=== PATIENT | female | born 1955 | race Caucasian/White ===

== ENCOUNTER 2019-02-21 12:50 | Outpatient (CLI) | payer MEDICARE, SELFPAY ==
--- NOTE | 2019-02-21 13:02 | MM_ITS ---
WS: [id number] BILATERAL SCREENING DIGITAL MAMMOGRAM WITH CAD HISTORY: SCREENING COMPARISON: 06/15/2017 and 04/23/2016 Bilateral CC and MLO views submitted. Computer aided detection analyzed. Breast composition: The breasts are heterogeneously dense, which may obscure small masses. No suspici ous masses, microcalcifications or architectural distortion. Postoperative cavity in the central LEFT breast is identified and unchanged. MM/[id number] IMPRESSION: BI-RADS: 2-Benign FOLLOW UP: 1 Year Follow-up
== END 2019-02-21 12:51 | disposition home or self-care (01) ==
LOC: RADSHAW 12:56
PROVIDERS: Family Provider Internal Medicine; PCP Internal Medicine; Visit Provider Internal Medicine
DX: Z12.31 Encounter for screening mammogram for malignant neoplasm of breast (principal)
CPT/HCPCS: 77067

== ENCOUNTER 2019-03-28 10:53 | Day surgery (SDC) | payer MEDICARE, SELFPAY ==
[2019-03-25 13:47] VITALS: BMI 27.9
--- NOTE | 2019-03-28 11:03 | P.ANESASSM_ITS ---
Pre-Anesthetic Assessment Pre-Anesthetic Assessment: Height/Weight: Height 1.63 m Weight 73.936 kg Preop Diagnosis: hx colon polyps Proposed Procedure: Operation Date: 03/28/19 12:00 Proposed Procedures p Colonoscopy(Not Applicable) - Yordan Obrien MD Was Beta Mike taken within 24 hours: Yes Last intake: 07:00 Last Intake: 22:00 Social: Social History: Tobacco Packs per day: 1/2 Pack years: 23 Exam: Pre-Anes Outpt Exam: alert, oriented x 3, clear to auscultation bilaterally and regular rate & rhythm Airway: Submandibular: WNL Cervical ROM: WNL MP: 1 Pulmonary: Pulmonary: COPD CV/HEM: CV/HEM: Afib and Arrythmia Comments: 2 blocks/2FOS without angina/REDDING stress test '19 negative Metabolic: Metabolic: Thyroid (replacement x 12y without recent changes) Musc/skel: Musc/skel: Lower Back Pain Comments: right radiculopathy Anesthetic Plan: ASA status: 3 Anesthesia: MAC PFSH Anesthesia PFSH: Social History Smoking and tobacco status: current every day smoker Second hand smoke exposure: Yes Alcohol intake: never Adopted: No Caregiver/support person: Yes Lives independently: Yes Household members: spouse Housing: House Marital status: Highest education level completed: High School Graduate service: No Current occupational status: employed Current occupational exposures/hazards: No Pets and animals: Yes Pets & animals: cat(s) and dog(s) History of recent travel: No Sexually active: Yes Current gender identity: Female Patricia/Anglican: Presybeterian Special patricia needs: No Agree to transfusion: No Financial difficulty paying for basics: Decline to Answer Data Anesthesia Cardiac Studies: No Data to Display
[2019-03-28] MEDS: sodium chloride 0.9% 1,000 ML 30 ML (11:53)
[2019-03-28 11:54] VITALS: BP 117/62; PULSE 57; RESP 20; TEMP 36.6; O2SAT 95
--- NOTE | 2019-03-28 11:56 | PM.HPUD ---
H&P update H&P Update: DATE OF SURGERY/PROCEDURE: 03/28/19 DATE H&P PERFORMED: 03/16/19 H&P UPDATE INFORMATION: H&P completed within last 30 days and No changes to prior documentation PREOP DIAGNOSIS: Colon polyps PLANNED PROCEDURE: Operation Date: 03/28/19 12:00 Proposed Procedures p Colonoscopy(Not Applicable) - Yordan Obrien MD Full H&P Perinent History: Medical/Surgical History: Medical History (Updated 03/17/19 @ 09:25 by Yordan Obrien MD) Anxiety (Acute) Atrial fibrillation (Acute) Graves disease (Acute) Hypothyroid (Acute) Left breast lump (Acute) Lumbar disc disorder with myelopathy (Acute) Myalgia (Acute) Osteoporosis (Acute) Thoracic compression fracture (Acute) Tobacco abuse (Acute) Family History: Family History (Updated 03/17/19 @ 09:21 by Yordan Obrien MD) Other History of colon polyps Denies family history of Anesthesia complication Bleeding disorder Social History: Social History Smoking and tobacco status: current every day smoker Second hand smoke exposure: Yes Alcohol intake: never Adopted: No Caregiver/support person: Yes Lives independently: Yes Household members: spouse Housing: House Marital status: Highest education level completed: High School Graduate service: No Current occupational status: employed Current occupational exposures/hazards: No Pets and animals: Yes Pets & animals: cat(s) and dog(s) History of recent travel: No Sexually active: Yes Current gender identity: Female Patricia/Mosque: Mandaen Special patricia needs: No Agree to transfusion: No Financial difficulty paying for basics: Decline to Answer
[2019-03-28 12:16] VITALS: BP 99/62; PULSE 57; RESP 20; TEMP 36.7; O2SAT 93
[2019-03-28 12:31] VITALS: BP 93/70; PULSE 62; RESP 18; TEMP 36.9; O2SAT 96
--- NOTE | 2019-03-28 13:23 | ANE.PACU2 ---
 Inpatient post-anesthesia follow up: Airway intact: Yes Vital signs: Temperature 98.4 F Pulse Rate 62 Respiratory Rate 18 Blood Pressure 93/70 Pulse Oximetry 96 Oxygen Delivery Me thod Room Air Oxygen Flow Rate 3 Fraction of Inspir ed Oxygen Hydration adequate: Yes Nausea and vomiting: No Mental status: Baseline
== END 2019-03-28 12:52 | disposition home or self-care (01) ==
PROVIDERS: Family Provider Internal Medicine; PCP Internal Medicine; Visit Provider Surgery
PROC: 0DJD8ZZ Inspection of Lower Intestinal Tract, Via Natural or Artificial Opening Endoscopic (ICD-10-PCS; CPT 45378; principal; 2019-03-28 12:00)
DX: Z12.11 Encounter for screening for malignant neoplasm of colon (principal); R22.2 Localized swelling, mass and lump, trunk; Z86.010 Personal history of colon polyps; I48.91 Unspecified atrial fibrillation; E03.9 Hypothyroidism, unspecified; M79.10 Myalgia, unspecified site; M81.0 Age-related osteoporosis without current pathological fracture; F17.210 Nicotine dependence, cigarettes, uncomplicated; J44.9 Chronic obstructive pulmonary disease, unspecified
CPT/HCPCS: 12345; 45378; J2704; J7030

== ENCOUNTER 2019-04-12 12:52 | Outpatient (CLI) | payer MEDICARE, SELFPAY ==
[2019-04-12] MEDS: iohexol 300 mg/mL 50 mL Btl PO (13:26)
[2019-04-12 14:11] LABS: Blood Urea Nitrogen 15 mg/dL (8-23); Glomerular Filtration Rate 56.2 mL/min (90-130)
[2019-04-12] MEDS: iohexol 300 mg/mL 100 mL Btl IV (14:24)
--- NOTE | 2019-04-12 14:30 | CT_ITS ---
WS: [id number] CT ABDOMEN AND PELVIS WITH CONTRAST HISTORY: subcutaneous nodule of abdominal wall TECHNIQUE: Imaging performed of the abdomen and pelvis with IV contrast. Single phase imaging of the abdomen. Coronal and sagittal reformats are submitted. All CT scans at [facility] use at least one of these dose optimization techniques: automated exposure control; mA and/or kV adjustment per patient size (includes targeted exams where dose is matched to clinical indication); or iterativ e reconstruction. IV CONTRAST: Omnipaque 300; 95 mL IV. Oral contrast: Yes. DLP: 1125.66 mGycm COMPARISON: 2017 and 07/16/2018 Lower thorax: Lung bases are clear. Heart is normal size. Small hiatal hernia. Liver/biliary system: Liver is normal size. There are a few scattered cysts. There is an additional e nhancing mass in the medial LEFT lobe the liver consistent with a hemangioma which has been previousl y described. Hemangioma measures 2.8 x 2.3 cm. No bile duct dilatation. Gallbladder: Cholecystectomy. Pancreas: Normal. Spleen: Normal. Adrenal glands: Stable adrenal adenomas. Right kidney: Cortical cysts and hypodensities throughout the kidney with scarring in the posterior m id kidney. No solid mass. Left kidney: Cortical cysts and hypodensities. Some of these are too small to characterize. No solid mass. Aorta: Mild atherosclerosis aorta. Lymphadenopathy: None. Free fluid: None. GI tract: Prior appendectomy. No GI tract obstruction. No diverticular disease. Abdominal wall: Intact. No soft tissue mass identified. Pelvis: Prior hysterectomy. No free fluid or adenopathy. Urinary bladder is not distended. Bones: L5-S1 degenerative disc disease. CT/CT abdomen pelvis w con* [id number] IMPRESSION: 1. Prior cholecystectomy, appendectomy and hysterectomy. 2. No soft tissue masses. 3. Hepatic and renal cysts and hepatic hemangioma. 4. Stable bilateral adrenal adenomas.
== END 2019-04-12 12:53 | disposition home or self-care (01) ==
LOC: RADWPI 12:55
PROVIDERS: Family Provider Internal Medicine; PCP Internal Medicine; Visit Provider Surgery
DX: K76.89 Other specified diseases of liver (principal); N28.1 Cyst of kidney, acquired; D35.02 Benign neoplasm of left adrenal gland; D35.01 Benign neoplasm of right adrenal gland; R22.2 Localized swelling, mass and lump, trunk; Z90.49 Acquired absence of other specified parts of digestive tract; Z90.710 Acquired absence of both cervix and uterus
CPT/HCPCS: 74177; 82565; 84520; Q9967

== ENCOUNTER → 2019-11-17 14:51 | Outpatient (BNVA) | payer MEDICARE, SELFPAY | PROVIDERS: Family Provider Internal Medicine; PCP Internal Medicine; Visit Provider Family Medicine Adult Medicine | DX: N18.30 Chronic kidney disease, stage 3 unspecified (principal); I48.0 Paroxysmal atrial fibrillation; E05.00 Thyrotoxicosis with diffuse goiter without thyrotoxic crisis or storm; R10.9 Unspecified abdominal pain; G89.29 Other chronic pain | CPT/HCPCS: 80053; 80061; 84439; 84443; 85025 ==

== ENCOUNTER 2019-12-01 08:33 | Emergency (ER) | payer MEDICARE, SELFPAY ==
--- NOTE | 2019-12-01 08:37 | XR_ITS ---
WS: [id number] Portable AP upright chest, 12/01/2019 Clinical Data: rapid HR Comparison: Portable chest, 12/17/2018. Findings: No nodules, masses or effusions are seen. The heart is normal. The pulmonary vascularity is not increased. No pneumonia or pneumothorax is seen. Hyperinflation is present. Monitor leads are on the upper chest wall. XR/XR chest 1V portable [id number] Impression: Hyperinflation.
[2019-12-01 08:38] VITALS: BP 130/91; PULSE 131; RESP 18; TEMP 36.2; O2SAT 98; BMI 27.4
[2019-12-01 08:41] VITALS: BP 130/91; PULSE 54; RESP 21; O2SAT 98
--- NOTE | 2019-12-01 08:50 | ED_ITS ---
HPI - Arrhythmia/Palpitations General: Chief Complaint: Arrhythmia/Palpitations Stated Complaint: Rapid Heart Rate Time Seen by Provider: 12/01/19 08:36 History of Present Illness: HPI narrative: 61-year-old female presents with complaint of palpitations and rapid heart rate that began overnight. She has a known history of atrial fibrillation she did not take either atenolol or flecainide this morning. She was recently changed from levothyroxine to [place] Thyroid. She is not had any fever sweats chills nausea vomiting diarrhea she does have some chest discomfort. No recent flulike symptoms. She does have a little chest tightness which she relates to the rapid heart rate at this point. No radiation of any chest discomfort. She has no orthopnea. MD complaint: rapid heart beat, heart racing , palpitations, irregular heart beat and atrial fibrillation Onset (ago): hour(s) Duration: constant Severity: severe Context: occurred during rest Arrhythmia history: atrial fibrillation Associated symptoms: Deny anxiety, cough, diaphoresis, muscle cramps, nausea, paresthesias, pre-syncope, sense of impending doom, short of breath, syncope or vomiting Review of Systems Const: Denies: diaphoresis ENMT: Denies: throat pain, ear or mastoid pain, nasal discharge or nasal conge stion Card: Denies: syncope or pre-syncope Resp: Denies: dyspnea, productive cough or non-productive cough GI: Denies: nausea or vomiting : Denies: flank pain, difficulty voiding, dysuria, urinary frequency or urinary urgency Musc: Denies: muscle cramps Skin/Breast: Denies: rash or pruritus Psych: Denies: anxiety PFSH ED PFSH: Medical History Anxiety Atrial fibrillation Bradycardia Chronic abdominal pain Chronic kidney disease, stage 2 (mild) Graves disease Left breast lump Lumbar disc disorder with myelopathy Myalgia Osteoporosis Thoracic compression fracture Tobacco abuse Surgical History H/O: hysterectomy History of colon polyps Colonoscopy was done today and showed normal findings and patient will require screening colonoscopy in 10 years. History of left knee surgery History of thyroidectomy Hx of cholecystectomy Family History Other History of colon polyps Denies family history of Anesthesia complication Bleeding disorder Social History Smoking and tobacco status: current every day smoker Second hand smoke exposure: Yes Alcohol intake: never Adopted: No Caregiver/support person: Yes Lives independently: Yes Household members: spouse Housing: House Marital status: Highest education level completed: High School Graduate service: No Current occupational status: employed Current occupational exposures/hazards: No Pets and animals: Yes Pets & animals: cat(s) and dog(s) History of recent travel: No Sexually active: Yes Current gender identity: Female Patricia/Quaker: Mormonism Special patricia needs: No Agree to transfusion: No Financial difficulty paying for basics: Decline to Answer Physical Exam Const: COMMON NORMALS: no acute distress GENERAL APPEARANCE: cooperative and comfortable ORIENTATION/CONSCIOUSNESS: Yes awake, Yes oriented to person, Yes oriented to place and Yes oriented to time HENMT: COMMON NORMALS: normocephalic, atraumatic and hearing grossly normal bilaterally HEAD & SCALP: normocephalic and atraumatic Eye: COMMON NORMALS: Equal, round and reactive pupils present, EOMs intact bilaterally, conjunctivae normal and no scleral icterus CONJUNCTIVA: Yes conjunctivae normal PUPIL: Yes Equal, round and reactive pupils present Resp: COMMON NORMALS: normal respiratory effort, No retractions, No use of accessory muscles and clear to auscultation bilaterally AUSCULTATION: clear to auscultation bilaterally Cardio: RATE: tachycardic RHYTHM: abnormal rhythm irregularly irregular GI: COMMON NORMALS: Soft to palpation and No hepatosplenomegaly present AUSCULTATION: Yes normoactive bowel sounds PALPATION: Yes Soft to palpation, No Tenderness to palpation present (GI), No Guarding due to palpation present (GI) and Yes No hepatosplenomegaly present Extremity: COMMON NORMALS: normal to inspection, capillary refill normal, no clubbing, cyanosis or edema, no calf tenderness and no pedal edema Neuro: SENSORIUM/ORIENTATION: Yes oriented to person, Yes oriented to place and Yes oriented to time Skin: COMMON NORMALS: no rashes or lesions noted GENERAL SKIN EXAM: no rashes or lesions noted Course Vital Signs: Vital signs: Vital Signs Temperature 97.1 F L 12/01/19 08:38 Pulse Rate 54 L 12/01/19 12:50 Respiratory Rate 18 12/01/19 12:50 Blood Pressure 141/79 12/01/19 12:50 Pulse Oximetry 99 12/01/19 12:50 MDM - Arrhythmia/Palpitations MDM Narrative: Medical decision making narrative: Patient converted with oral medications. She is feeling much better 2 troponins negative discharge home continue current medications follow-up with her primary care doctor she also follow-up for adjustment on the [place] Thyroid Lab Data: Labs: Lab Results 12/01/19 12/01/19 12/01/19 Range/Units 08:47 08:47 08:47 WBC 7.5 (4.0-10.0) 10^3/ uL RBC 4.95 (4.1-5.3) 10^6/u L Hgb 16.1 H (11.5-15.3) g/dL Hct 49.2 H (37.0-47.0) % MCV 99.4 H (81-99) fL MCH 32.5 (28.0-34.0) pg MCHC 32.7 (30.0-36.0) g/dL RDW 12.3 (12.1-15.1) % Plt Count 197 (130-400) 10^3/c mm MPV 10.9 H (7.4-10.4) fL Neut % (Auto) 49.1 % Lymph % (Auto) 41.7 % [place] % (Auto) 8.1 % Eos % (Auto) 0.7 % Baso % (Auto) 0.3 % Neut # (Auto) 3.69 (1.8-7.7) 10^3/u L Lymph # (Auto) 3.1 (0.8-4.8) 10^3/u L [place] # (Auto) 0.6 (0.2-0.9) 10^3/u L Eos # (Auto) 0.1 (0.0-0.8) 10^3/u L Baso # (Auto) 0.0 (0.0-0.1) 10^3/u L Nucleated RBC % (a uto) 0 % Nucleated RBCs # 0.0 /100WBC PT 12.80 (12.1-14.9) SECO NDS INR 0.94 (0.8-1.2) Sodium 144 (136-145) mmol/L Potassium 4.2 (3.5-5.1) mmol/L Chloride 111 H (98-107) mmol/L Carbon Dioxide 20 L (22-29) mmol/L Anion Gap 17.2 (5-19) BUN 10 (8-23) mg/dL Creatinine 0.9 (0.5-0.9) mg/dL GFR Calculation 63.4 L (90-130) mL/min Glucose 145 H (65-115) mg/dL Calculated Osmolal ity 300 H (285-295) mOsm/k g Calcium 9.4 (8.5-10.5) mg/dL Total Bilirubin 0.3 (0.15-1.2) mg/dL AST 16 (0-32) U/L ALT 14 (0-33) U/L Alkaline Phosphata se 117 H (35-105) IU/L Troponin T Baselin e (0-10) ng/L Troponin T 120 Min [place] (0-10) ng/L Delta Troponin T (0-10) ABS# Total Protein 6.3 L (6.6-8.7) g/dL Albumin 4.4 (3.5-5.2) g/dL Globulin 1.9 (1.3-4.6) g/dL TSH 0.19 L (0.27-4.20) uIU/ mL Free T4 1.16 (0.82-1.77) ng/d L Free T3 3.2 (2.0-4.4) PG/ML Urine Color (Yellow) Urine Appearance (CLEAR) Urine pH (5-7) Ur Specific Gravit y (1.005-1.030) Urine Protein (Negative) Urine Glucose (UA) (Normal) Urine Ketones (Negative) Urine Blood (Negative) Urine Nitrate (Negative) Urine Bilirubin (Negative) Urine Urobilinogen (Negative) mg/dL Ur Leukocyte Vickie ase (Negative) 12/01/19 12/01/19 12/01/19 Range/Units 08:47 09:39 11:08 WBC (4.0-10.0) 10^3/ uL RBC (4.1-5.3) 10^6/u L Hgb (11.5-15.3) g/dL Hct (37.0-47.0) % MCV (81-99) fL MCH (28.0-34.0) pg MCHC (30.0-36.0) g/dL RDW (12.1-15.1) % Plt Count (130-400) 10^3/c mm MPV (7.4-10.4) fL Neut % (Auto) % Lymph % (Auto) % [place] % (Auto) % Eos % (Auto) % Baso % (Auto) % Neut # (Auto) (1.8-7.7) 10^3/u L Lymph # (Auto) (0.8-4.8) 10^3/u L [place] # (Auto) (0.2-0.9) 10^3/u L Eos # (Auto) (0.0-0.8) 10^3/u L Baso # (Auto) (0.0-0.1) 10^3/u L Nucleated RBC % (a uto) % Nucleated RBCs # /100WBC PT (12.1-14.9) SECO NDS INR (0.8-1.2) Sodium (136-145) mmol/L Potassium (3.5-5.1) mmol/L Chloride (98-107) mmol/L Carbon Dioxide (22-29) mmol/L Anion Gap (5-19) BUN (8-23) mg/dL Creatinine (0.5-0.9) mg/dL GFR Calculation (90-130) mL/min Glucose (65-115) mg/dL Calculated Osmolal ity (285-295) mOsm/k g Calcium (8.5-10.5) mg/dL Total Bilirubin (0.15-1.2) mg/dL AST (0-32) U/L ALT (0-33) U/L Alkaline Phosphata se (35-105) IU/L Troponin T Baselin e 8 (0-10) ng/L Troponin T 120 Min [place] 20.27 H (0-10) ng/L Delta Troponin T 12.27 H* (0-10) ABS# Total Protein (6.6-8.7) g/dL Albumin (3.5-5.2) g/dL Globulin (1.3-4.6) g/dL TSH (0.27-4.20) uIU/ mL Free T4 (0.82-1.77) ng/d L Free T3 (2.0-4.4) PG/ML Urine Color Yellow (Yellow) Urine Appearance Clear (CLEAR) Urine pH 6 (5-7) Ur Specific Gravit y 1.015 (1.005-1.030) Urine Protein Neg (Negative) Urine Glucose (UA) Norm (Normal) Urine Ketones Negative (Negative) Urine Blood Neg (Negative) Urine Nitrate Negative (Negative) Urine Bilirubin Neg (Negative) Urine Urobilinogen Neg (Negative) mg/dL Ur Leukocyte Vickie ase Negative (Negative) Discharge Plan Discharge Patient Disposition: Home Clinical Impression: Atrial fibrillation, Graves disease Condition: Stable Prescriptions: No Action flecainide 50 mg tablet 50 mg PO Q12H Qty: 60 RF: 5 atenolol 25 mg tablet 25 mg PO DAILY 90 Days Qty: 90 RF: 3 ibuprofen 800 mg tablet 800 mg PO TID PRN (Reason: Pain) Qty: 90 RF: 1 bupropion HCl [Wellbutrin XL] 150 mg tablet extended release 24 hr 150 mg PO QAM Qty: 30 RF: 3 Xarelto 20 mg tablet 20 mg PO DAILY Qty: 90 RF: 1 thyroid (pork) [[place] Thyroid] 120 mg tablet 120 mg PO DAILY Qty: 90 RF: 1 thyroid (pork) [[place] Thyroid] 30 mg tablet 30 mg PO DAILY Qty: 90 RF: 1 Discharge Orders: Discharge Order (Routine); Ordered 12/01/19 Ordered By: Ming Baca Referrals: Ayde Li, [Primary Care Provider] - Discharge Diet: Usual diet Discharge Activity: Resume usual activity Activity Restrictions/Additional Instructions: Aloe up with your fire equipment inspector as soon as you are able. 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
--- NOTE | 2019-12-01 08:56 | ECG_ITS ---
[facility] Test Date: 2019-12-01 Pat Name: Megan Desai Department: Room: Gender: Female Hall Monitor: : 1955 Requested By: Ming Null Order Number: [id number] Sharif MD: Butch García M.D. Measurements Intervals [place] Rate: 159 P: SC: -1 QRS: 55 QRSD: 93 T: 29 QT: 279 QTc: 454 Interpretive Statements ATRIAL FIBRILLATION WITH RAPID VENTRICULAR RESPONSE ST DEPRESSION, CONSIDER SUBENDOCARDIAL INJURY [0.1+ mV ST DEPRESSION] Compared to ECG 12/17/2018 22:09:52 ST (T wave) deviation now present T-wave abnormality no longer present Electronically Signed On 12-01-2019 18:40:05 CDT by Butch García M.D. [id number] f
[2019-12-01] MEDS: atenolol 50 mg Tablet 25 MG PO (09:06)
[2019-12-01] MEDS: flecainide 100 mg Tablet 50 MG PO (09:06)
[2019-12-01 09:11] LABS: Basophils % 0.3 %; Eosinophils # 0.1 10^3/uL (0.0-0.8); Eosinophils % 0.7 %; Hematocrit 49.2 % (37.0-47.0); Hemoglobin 16.1 g/dL (11.5-15.3); Lymphocytes # 3.1 10^3/uL (0.8-4.8); Lymphocytes % 41.7 %; Mean Corpuscular HGB Conc 32.7 g/dL (30.0-36.0); Mean Corpuscular Hemoglobin 32.5 pg (28.0-34.0); Mean Corpuscular Volume 99.4 fL (81-99); Mean Platelet Volume 10.9 fL (7.4-10.4); Monocytes # 0.6 10^3/uL (0.2-0.9); Monocytes % 8.1 %; Neutrophils # 3.69 10^3/uL (1.8-7.7); Neutrophils % 49.1 %; Nucleated Red Blood Cells % 0 %; Platelet Count 197 10^3/cmm (130-400); Red Blood Count 4.95 10^6/uL (4.1-5.3); Red Cell Distribution Width 12.3 % (12.1-15.1); White Blood Count 7.5 10^3/uL (4.0-10.0)
[2019-12-01 09:30] VITALS: BP 125/80; PULSE 53; RESP 18; O2SAT 97
[2019-12-01 09:32] LABS: INR 0.94 (0.8-1.2)
[2019-12-01 09:37] LABS: Troponin(5th) Baseline 8 ng/L (0-10)
[2019-12-01 09:51] LABS: Add Urine Microscopic? NO
[2019-12-01 09:55] LABS: Bilirubin Urine Neg (Negative); Blood Urine Neg (Negative); Glucose Urine UA Norm (Normal); Ketones Urine Negative (Negative); Leukocyte Esterase Urine Negative (Negative); Nitrate Urine Negative (Negative); Protein Urine Neg (Negative); Specific Gravity, Urine 1.015 (1.005-1.030); Urine Appearance Clear (CLEAR); Urine Color Yellow (Yellow); Urobilinogen Urine Neg (Negative); pH Urine 6 (5-7)
[2019-12-01 09:56] LABS: Alanine Aminotransferase 14 U/L (0-33); Albumin Level 4.4 g/dL (3.5-5.2); Alkaline Phosphatase 117 IU/L (35-105); Aspartate Amino Transferase 16 U/L (0-32); Blood Urea Nitrogen 10 mg/dL (8-23); Calcium 9.4 mg/dL (8.5-10.5); Carbon Dioxide 20 mmol/L (22-29); Chloride 111 mmol/L (98-107); Free T4 Free Thyroxine 1.16 ng/dL (0.82-1.77); Globulin 1.9 g/dL (1.3-4.6); Glomerular Filtration Rate 63.4 mL/min (90-130); Glucose 145 mg/dL (65-115); Osmolality Calculated 300 mOsm/kg (285-295); Sodium 144 mmol/L (136-145); T3 Free 3.2 PG/ML (2.0-4.4); Thyroid Stimulating Hormone 0.19 uIU/mL (0.27-4.20); Total Bilirubin 0.3 mg/dL (0.15-1.2); Total Protein 6.3 g/dL (6.6-8.7)
[2019-12-01 09:58] LABS: Anion Gap 17.2 (5-19); Potassium 4.2 mmol/L (3.5-5.1)
[2019-12-01 10:00] VITALS: BP 134/86; PULSE 60; RESP 18; O2SAT 97
--- NOTE | 2019-12-01 10:56 | ECG_ITS ---
[facility] Test Date: 2019-12-01 Pat Name: Megan Desai Department: Room: Gender: Female Belt Sewer: : 1955 Requested By: Ming Null Order Number: [id number] Sharif MD: Butch García M.D. Measurements Intervals [place] Rate: 54 P: 30 AL: 152 QRS: 27 QRSD: 102 T: 34 QT: 413 QTc: 392 Interpretive Statements SINUS BRADYCARDIA Compared to ECG 12/01/2019 08:41:30 Atrial fibrillation no longer present ST (T wave) deviation no longer present Electronically Signed On 12-01-2019 20:49:16 CDT by Butch García M.D. [email or web address]/[id number] f
[2019-12-01 11:00] VITALS: BP 136/84; PULSE 58; RESP 20; O2SAT 97
[2019-12-01 11:34] LABS: Troponin 5 2HR 20.27 ng/L (0-10)
[2019-12-01 11:39] LABS: Troponin 5 2HR Delta 12.27 ABS# (0-10)
[2019-12-01 12:50] VITALS: BP 141/79; PULSE 54; RESP 18; O2SAT 99
== END 2019-12-01 12:50 | disposition home or self-care (01) ==
PROVIDERS: Nurse Practitioner Family; Emergency Provider Family Medicine; Family Provider Internal Medicine; PCP Internal Medicine
DX: I48.91 Unspecified atrial fibrillation (principal); E05.00 Thyrotoxicosis with diffuse goiter without thyrotoxic crisis or storm; N18.2 Chronic kidney disease, stage 2 (mild); F17.210 Nicotine dependence, cigarettes, uncomplicated
CPT/HCPCS: 12345; 71045; 80053; 81003; 84439; 84443; 84481; 84484; 85025; 85610; 93005; 96374; 99283; 99284

== ENCOUNTER → 2020-05-21 10:55 | Outpatient (BNVA) | payer MEDICARE, SELFPAY | PROVIDERS: Family Provider Internal Medicine; PCP Family Medicine Adult Medicine; Visit Provider Family Medicine Adult Medicine | DX: E07.9 Disorder of thyroid, unspecified (principal); N18.2 Chronic kidney disease, stage 2 (mild); E05.00 Thyrotoxicosis with diffuse goiter without thyrotoxic crisis or storm; I48.20 Chronic atrial fibrillation, unspecified | CPT/HCPCS: 80048; 82040; 84443 ==

== ENCOUNTER 2020-12-18 10:46 | Outpatient (CLI) | payer MEDICARE, SELFPAY ==
--- NOTE | 2020-12-18 10:49 | MM_ITS ---
WS: [id number] BILATERAL DIGITAL SCREENING MAMMOGRAPHY WITH CAD CLINICAL INFORMATION: SCREENING HISTORY: Screening mammogram. No current complaints. COMPARISON: February 21, 2019 TECHNIQUE: Bilateral CC and MLO views. FINDINGS: The breasts are composed of heterogeneous fibroglandular density tissue, which can limit the detectio n of small underlying mass lesions. Benign dystrophic calcifications left breast at the lumpectomy ca vity. Lumpectomy central left breast with parenchymal fibrosis. No suspicious mass, asymmetry, calcif ications, or architectural distortion. No evidence of malignancy. MM/[id number] IMPRESSION: BI-RADS: 2-Benign FOLLOW UP: 1 Year Follow-up Recommend return to annual screening mammography.
== END 2020-12-18 10:47 | disposition home or self-care (01) ==
LOC: RADSHAW 10:47
PROVIDERS: PCP Family Medicine Adult Medicine; Visit Provider Family Medicine Adult Medicine
DX: Z12.31 Encounter for screening mammogram for malignant neoplasm of breast (principal)
CPT/HCPCS: 77067

== ENCOUNTER 2021-02-13 08:11 | Outpatient (CLI) | payer MEDICARE, SELFPAY ==
[2021-02-13 08:24] VITALS: BMI 27.6
--- NOTE | 2021-02-13 08:24 | ECG_ITS ---
[facility] Test Date: 2021-02-13 Pat Name: Megan Desai Department: Room: Gender: Female Vp Business Development: Gladis Card : 1955 Requested By: Candice Dugan Order Number: [id number] Reading MD: Candice Dugan M.D. Interpretive Statements NAME OF STUDY: LEXISCAN SESTAMIBI STRESS TEST INDICATION: Cp/afib, PROCEDURE: At the baseline, the EKG revealed normal sinus rhythm with a poor R wave progression. Nonspecific T wave changes. The baseline blood pressure was 152/74 mm Hg with a heart rate of 78 beats/min. Lexiscan was infused over a period of 20 seconds. A total of 0.4 milligrams of Lexiscan was infused. The stress phase was continued for a total of 5 minutes. Heart rate at the end of the stress phase was 84 with a blood pressure 157/72. The EKG at the peak infusion revealed no significant changes. Sestamibi was injected 20 seconds after the Lexiscan infusion. Blood pressure at the end of the recovery phase was 146/67 with a heart rate of 83 per minute. CONCLUSION: 1. No significant EKG changes with the LexiScan infusion 2. No LexiScan induced chest pain or cardiac arrhythmia 3. Normal blood pressure and heart rate response 4. Sestamibi/sestamibi perfusion scan pending; see separate report. Electronically Signed On 02-15-2021 10:52:09 PATENTED HOGSHEAD ASSEMBLER by Candice Dugan M.D. [id number]
--- NOTE | 2021-02-13 08:24 | NMCV_ITS ---
NM [place] perf SPECT r/s* [id number] Megan Desai Age: 65 Gender: F : 1955 Exam Date: 02/13/2021 08:24 Ordering Phys: Candice Dugan MD ([email or web address]) Technologist: MANJIT Leavitt Exam Location: [facility] Indications: SHORTNESS OF BREATH STRESS TEST Please [facility] IMAGE PROTOCOL Rest/Stress 1 Lexiscan Day Radiopharmaceutical Dose (mCi) Administration Site Administered by Rest: Tc-99m 10.9 IV MANJIT Leavitt Sestamibi Stress:Tc-99m 32.3 IV MANJIT Csatillo Sestamibi Rest: 13-Feb-2021 60 Discovery 630 Stress: 13-Feb-2021 30 Discovery 630 0.4mg Lexiscan. Images obtained in supine and prone position. SPECT RESULTS Technical Quality: Excellent Raw Data Analysis: Normal Image Corrections: No attenuation or motion correction applied Summed Stress Score: 0 Summed Rest Score: 0 Summed Difference Score: 0 PERFUSION FINDINGS Fairly uniform myocardial tracer uptake with no significant perfusion abnormalities FUNCTIONAL RESULTS (calculated via Gated SPECT) Stress Image LV EF (%): 82 Stress EDV (mL):61 TID: 0.94 Stress ESV (mL):11 FUNCTIONAL FINDINGS: Segmental wall motion analysis revealing no gross wall motion normalities IMPRESSIONS 1. Unremarkable myocardial perfusion imaging 2. Normal LV ejection fraction of 82%. 3. LV wall motion analysis revealing no gross wall motion normalities. 4. Normal LV volume No significant coronary ischemia, based on the above findings Dr Candice Dugan MD FAC (Electronically Signed) Final Date: 13 February 2021 17:22 S
[2021-02-13 10:18] VITALS: BP 152/74; PULSE 83
[2021-02-13] MEDS: regadenoson 0.4 Mg/5 ml Syringe IVP (10:19)
== END 2021-02-13 08:12 | disposition home or self-care (01) ==
LOC: CDL 08:12
PROVIDERS: PCP Family Medicine Adult Medicine; Visit Provider Internal Medicine Cardiovascular Disease
DX: R07.9 Chest pain, unspecified (principal); I48.91 Unspecified atrial fibrillation; R06.02 Shortness of breath
CPT/HCPCS: 78452; 93017; A9500; J2785

== ENCOUNTER → 2021-05-28 09:30 | Outpatient (BNVA) | payer MEDICARE, SELFPAY | PROVIDERS: PCP Family Medicine Adult Medicine; Visit Provider Family Medicine Adult Medicine | DX: R07.89 Other chest pain (principal); N18.2 Chronic kidney disease, stage 2 (mild); R22.2 Localized swelling, mass and lump, trunk; E05.00 Thyrotoxicosis with diffuse goiter without thyrotoxic crisis or storm; I48.20 Chronic atrial fibrillation, unspecified | CPT/HCPCS: 80053; 80061; 83036; 84443; 85025 ==

== ENCOUNTER → 2021-06-17 11:07 | Outpatient (BNVA) | payer MEDICARE, SELFPAY | PROVIDERS: PCP Family Medicine Adult Medicine; Visit Provider Internal Medicine Cardiovascular Disease | DX: R07.89 Other chest pain (principal); N18.2 Chronic kidney disease, stage 2 (mild); I48.20 Chronic atrial fibrillation, unspecified; Z79.01 Long term (current) use of anticoagulants; E05.00 Thyrotoxicosis with diffuse goiter without thyrotoxic crisis or storm; F17.210 Nicotine dependence, cigarettes, uncomplicated; Z79.899 Other long term (current) drug therapy | CPT/HCPCS: 93005; 99214 ==

== ENCOUNTER → 2021-12-18 14:32 | Outpatient (BNVA) | payer MEDICARE, SELFPAY | PROVIDERS: PCP Family Medicine Adult Medicine; Visit Provider Podiatrist Foot & Ankle Surgery | DX: M77.41 Metatarsalgia, right foot (principal); Q66.71 Congenital pes cavus, right foot; Q66.72 Congenital pes cavus, left foot; M77.42 Metatarsalgia, left foot; M77.52 Other enthesopathy of left foot and ankle; M77.51 Other enthesopathy of right foot and ankle; M72.2 Plantar fascial fibromatosis | CPT/HCPCS: 73630; 99204 ==

== ENCOUNTER 2022-01-08 12:54 | Outpatient (CLI) | payer MEDICARE, SELFPAY ==
--- NOTE | 2022-01-08 13:00 | XR_ITS ---
WS: [id number] DEXA (DUAL ENERGY X-RAY ABSORPTIOMETRY) Bone mineral density was performed using a Heyday machine. HISTORY: female PMS COMPARISON: 09/11/2014 Lumbar spine BMD (L1-L4): 0.820 g/cm2 T score: -3.0 Z score: -1.7 Total hip BMD: Left: 0.719 g/cm2. T score: -2.3 Z score: -1.3 Right: 0.779 g/cm2. T score: -1.8 Z score: -0.9 10 year probability of a major osteoporotic fracture is 19.7%. Compared to the prior study from 09/11/2014. Lumbar spine bone mineral density has decreased by 3.2%. Bilateral hips bone mineral density has decreased by 2.5%. XR/XR DEXA axial skeleton* [id number] IMPRESSION: OSTEOPOROSIS based upon the WHO classification for females. Significant decrease in bone mineral density within both the lumbar spine and h ips since the prior study.
== END 2022-01-08 12:55 | disposition home or self-care (01) ==
LOC: RAD 12:54
PROVIDERS: PCP Family Medicine Adult Medicine; Visit Provider Family Medicine Adult Medicine
DX: M81.0 Age-related osteoporosis without current pathological fracture (principal)
CPT/HCPCS: 77080

== ENCOUNTER → 2022-02-26 08:03 | Outpatient (BNVA) | payer MEDICARE, SELFPAY | PROVIDERS: PCP Family Medicine Adult Medicine; Visit Provider Podiatrist Foot & Ankle Surgery | DX: M77.41 Metatarsalgia, right foot (principal); Q66.71 Congenital pes cavus, right foot; Q66.72 Congenital pes cavus, left foot; M77.42 Metatarsalgia, left foot; M77.52 Other enthesopathy of left foot and ankle; M77.51 Other enthesopathy of right foot and ankle; M72.2 Plantar fascial fibromatosis | CPT/HCPCS: 99213 ==

== ENCOUNTER → 2022-02-26 10:01 | Outpatient (BNVA) | payer MEDICARE, SELFPAY | PROVIDERS: PCP Family Medicine Adult Medicine; Visit Provider Family Medicine Adult Medicine | DX: I48.20 Chronic atrial fibrillation, unspecified (principal); E05.00 Thyrotoxicosis with diffuse goiter without thyrotoxic crisis or storm | CPT/HCPCS: 84443 ==

== ENCOUNTER → 2022-05-12 08:36 | Outpatient (BNVA) | payer MEDICARE, SELFPAY | PROVIDERS: PCP Family Medicine Adult Medicine; Referring Provider Dermatology; Visit Provider Student in an Organized Health Care Education/Training Program | DX: M20.031 Swan-neck deformity of right finger(s) (principal) | CPT/HCPCS: 73130; 99203 ==

== ENCOUNTER 2022-06-02 10:00 | Outpatient (CLI) | payer MEDICARE, SELFPAY ==
--- NOTE | 2022-06-02 10:14 | MM_ITS ---
WS: [id number] Bilateral screening 3D tomosynthesis digital mammogram, 06/02/2022 Clinical Data: SCREENING Comparison: 12/18/2020, 02/21/2019, 06/15/2017, 04/23/2016, 01/03/2016, 09/27/2013, 07/25/2011, 06/19/2010, 2009. Findings: There is a spiculated area in the central portion of the left breast at the 12:00 position which cont ains amorphous calcifications. No secondary signs of carcinoma are seen. The breast parenchymal pattern shows heterogeneous density. The right breast shows no spiculated mass es or clustered calcifications. There are no secondary signs of carcinoma. There are lymph nodes in b oth axilla. MM/[place] [id number] Impression: 1. Recommend compression views in the ML and CC projection of the central port ion of the left breast in the region of the coarse calcifications. 2. Recommend left breast ultrasound. BIRADS: 0-Incomplete: Need additional imaging evaluation FOLLOW UP: See Report The CAD quality control checker was used.
== END 2022-06-02 10:01 | disposition home or self-care (01) ==
LOC: RAD 10:03
PROVIDERS: PCP Family Medicine Adult Medicine; Visit Provider Family Medicine Adult Medicine
DX: Z12.31 Encounter for screening mammogram for malignant neoplasm of breast (principal)
CPT/HCPCS: 77063; 77067

== ENCOUNTER 2022-06-23 09:15 | Outpatient (CLI) | payer MEDICARE, SELFPAY ==
--- NOTE | 2022-06-23 09:25 | MM_ITS ---
WS: [id number] DIAGNOSTIC LEFT DIGITAL TOMOSYNTHESIS MAMMOGRAPHY WITH CAD. HISTORY: R92.0 - Mammographic microcalcification found on mammogram. COMPARISON: 06/02/2022, 12/18/2020 and 02/21/2019 Technique: Spot compression LEFT CC and MLO. True ML. Breast composition: There are scattered areas of fibroglandular density. Focal area of spiculation i n the central breast near 12:00 corresponds to a prior surgical biopsy site. There is evidence for fa t necrosis and dystrophic calcifications. There is no significant mass. Suspect all the changes are r elated to the prior biopsy with fat necrosis and developing dystrophic calcifications. Ultrasound will not be performed today. Ultrasound evaluation of an area of fat necrosis is typically not recommended. This would only cause more confusion as there would be a large amount shadowing to the fat and calcification. Short-term follow-up should be obtained by mammography. MM/[place] [id number] IMPRESSION: BI-RADS: 3-Probably Benign FOLLOW UP: 6 Month Follow-up 1. Masslike area of slight spiculation in the LEFT breast at 12:00 is most lik italo fat necrosis with developing dystrophic calcifications from the prior biops y site. Ultrasound would not provide additional information or benefit at this time. 2. 6 month diagnostic LEFT mammogram would be the most helpful follow-up study .
== END 2022-06-23 09:16 | disposition home or self-care (01) ==
LOC: RAD 09:20
PROVIDERS: PCP Family Medicine Adult Medicine; Visit Provider Family Medicine Adult Medicine
DX: R92.0 Mammographic microcalcification found on diagnostic imaging of breast (principal); N63.21 Unspecified lump in the left breast, upper outer quadrant
CPT/HCPCS: 77061; 85651; 86140; 86431; G0279

== ENCOUNTER → 2022-07-18 07:20 | Outpatient (BNVA) | payer MEDICARE, SELFPAY | PROVIDERS: PCP Family Medicine Adult Medicine; Visit Provider Family Medicine Adult Medicine | DX: E05.00 Thyrotoxicosis with diffuse goiter without thyrotoxic crisis or storm (principal); Z79.899 Other long term (current) drug therapy; R11.10 Vomiting, unspecified; I12.9 Hypertensive chronic kidney disease with stage 1 through stage 4 chronic kidney disease, or unspecified chronic kidney disease; N18.2 Chronic kidney disease, stage 2 (mild); I48.91 Unspecified atrial fibrillation | CPT/HCPCS: 80053; 83036; 84439; 84443; 85025 ==

== ENCOUNTER → 2022-08-01 11:11 | Outpatient (BNVA) | payer MEDICARE, SELFPAY | PROVIDERS: PCP Family Medicine Adult Medicine; Visit Provider Specialist | DX: I48.20 Chronic atrial fibrillation, unspecified (principal); Z72.0 Tobacco use; Z79.01 Long term (current) use of anticoagulants; I12.9 Hypertensive chronic kidney disease with stage 1 through stage 4 chronic kidney disease, or unspecified chronic kidney disease; N18.9 Chronic kidney disease, unspecified; R00.1 Bradycardia, unspecified | CPT/HCPCS: 93005; 99214 ==

== ENCOUNTER 2022-08-26 07:41 | Outpatient (CLI) | payer MEDICARE, SELFPAY ==
--- NOTE | 2022-08-26 08:00 | USCV_ITS ---
Megan Desai Age: 66 Gender: F : 1955 Exam Date: 08/26/2022 07:49 Ordering Phys: Gilberto Caro MD ([email or web address]) Technologist: Long Malik Exam Location: [facility] [place] Indication: BP: 130 / 78 HR: 53 Rhythm: Sinus Technical Quality: Adequate MEASUREMENTS (Male / Female) Normal Values 2D ECHO LV Diastolic Diameter PLAX 5.1 cm 4.2 - 5.9 / 3.9 - 5.3 cm LV Systolic Diameter PLAX 3.0 cm IVS Diastolic Thickness 0.9 cm 0.6 - 1.0 / 0.6 - 0.9 cm IVS Systolic Thickness 1.5 cm LVPW Diastolic Thickness 1.0 cm 0.6 - 1.0 / 0.6 - 0.9 cm LVPW Systolic Thickness 1.8 cm LVOT Diameter 2.0 cm LV Ejection Fraction 2D Teich 70.5 % LV Ejection Fraction MOD 2C 61.5 % LV Ejection Fraction 2C AL 62.9 % LA Diameter 3.4 cm Aorta at Sinotubular Diameter 2.8 cm IVC Diameter 1.2 cm M-MODE Aortic Annulus Diameter 3.1 cm LA Ao Ratio MM 1.2 MV E Point Septal Separation 0.5 cm DOPPLER AV Peak Velocity 121.0 cm/s LVOT Peak Velocity 90.0 cm/s AV Area Cont Eq vti 2.6 cm squared AV Area Cont Eq pk 2.4 cm squared MV Peak Velocity 77.0 cm/s MV Area PHT 3.5 cm squared Mitral E to A Ratio 1.2 MV E' Velocity 38.5 cm/s Mitral E to MV E' Ratio 5.7 Mitral E to LV E' Lateral Ratio 4.6 Mitral E to LV E' Septal Ratio 7.5 TR Peak Velocity 137.0 cm/s TR Peak Gradient 7.5 mmHg TV Peak E Velocity 88.0 cm/s Right Atrial Pressure 3.0 mmHg Pulmonary Artery Systolic Pressu 10.5 mmHg FINDINGS Left Ventricle Normal left ventricular size and systolic function, EF 60 %. No regional wall motion abnormalities. Right Ventricle The right ventricle is normal in size and function. Right Atrium The right atrium is normal in size. Left Atrium The left atrium is normal in size. Mitral Valve Thickened mitral valve. Aortic Valve No gross abnormalities noted Tricuspid Valve Trace tricuspid valve regurgitation. Pulmonic Valve No gross abnormalities noted Pericardium Normal pericardium without effusion. Aorta Normal ascending aorta dimension. IVC Normal inferior vena cava. CONCLUSIONS Normal left ventricular size and systolic function, EF 60 %. No regional wall motion abnormalities. Thickened mitral valve. Trace tricuspid valve regurgitation. There is no pericardial effusion. There are no intracardiac masses. Compared to the previous study from 06/04/2015, there may not be a significant change Dr Candice Dugan MD FACC (Electronically Signed) Final Date: 29 August 2022 13:18 S
== END 2022-08-26 07:42 | disposition home or self-care (01) ==
PROVIDERS: PCP Family Medicine Adult Medicine; Visit Provider Specialist
DX: I10 Essential (primary) hypertension (principal); I48.91 Unspecified atrial fibrillation
CPT/HCPCS: 93306

== ENCOUNTER → 2022-09-26 09:02 | Outpatient (BNVA) | payer MEDICARE, SELFPAY | PROVIDERS: PCP Family Medicine Adult Medicine; Visit Provider Surgery | DX: R11.0 Nausea (principal); K31.84 Gastroparesis | CPT/HCPCS: 99204; 99214 ==

== ENCOUNTER 2022-10-09 08:28 | Day surgery (SDC) | payer MEDICARE, SELFPAY ==
[2022-10-09] MEDS: sodium chloride 0.9% 1,000 ML 30 ML IV (08:44)
[2022-10-09 08:46] VITALS: BP 141/64; PULSE 53; RESP 18; TEMP 36.5; O2SAT 98
--- NOTE | 2022-10-09 09:23 | P.ANESASSM_ITS ---
Pre-Anesthetic Assessment Height/Weight: Height 1.63 m Weight 70.76 kg Temp Pulse Resp BP Pulse Ox O2 Del Method 97.7 F 53 L 18 141/64 98 Room Air 10/09/22 08:46 10/09/22 08:46 10/09/22 08:46 10/09/22 08:46 10/09/22 08:46 10/09/22 08:46 Operation Date: 10/09/22 09:30 Proposed Procedures p EGD 29810,R11.0,K31.84(Not Applicable) - Hay Ramsey MD Familial anesthetic complications: none Was Beta Mike taken within 24 hours: N/A Was Clonidine taken within 24 hours: N/A Last intake: Intake Last Liquid Date 10/08/22 Last Liquid Time 23:00 Last Solid Date 10/08/22 Last Solid Time 21:00 Social Tobacco (1ppd) and No alcohol Exam alert and oriented x 3 Airway Submandibular: within normal limits Cervical ROM: within normal limits Mallampati: Class II Dentition: full History/ROS No significant history except as noted Pulmonary Chronic Obstructive Pulmonary Disease CV/HEM Atrial Fibrillation and Hypertension None reported Hepatic None reported GI None reported Metabolic Thyroid Disease [facility] None reported Neuropsych None reported Anesthetic Plan ASA status: 3 Anesthesia: Anesthesia Evaluation, General and MAC Medications/Allergies Home Medications Medication Instructions Recorded Confirmed Last Taken Type ibuprofen 800 mg tablet See Rx Instructions .Route 12/17/21 10/09/22 Unknown Rx .COMPLEX #90 tabs amlodipine 2.5 mg tablet 2.5 mg PO DAILY #90 tabs 02/24/22 10/07/22 10/08/22 Rx atenolol 25 mg tablet 25 mg PO DAILY #90 tabs 02/24/22 10/07/22 10/08/22 Rx alendronate 70 mg tablet 70 mg PO .q week #12 tabs 02/26/22 10/07/22 10/08/22 Rx flecainide 50 mg tablet 50 mg PO Q12H heat rhythm #180 tabs 06/03/22 10/07/22 10/08/22 Rx levocetirizine 5 mg tablet 5 mg PO DAILY allergies #90 tabs 06/03/22 10/07/22 10/08/22 Rx rivaroxaban 20 mg tablet (Xarelto) 20 mg PO DAILY blood thinner 90 06/03/22 10/07/22 10/06/22 Rx days #90 tabs thyroid (pork) 120 mg tablet 120 mg PO DAILY Hypothyroid 90 06/03/22 10/07/22 10/08/22 Rx ([place] Thyroid) days #90 tabs metoclopramide HCl 10 mg tablet 10 mg PO .q ac and q hs 09/02/22 10/07/22 10/08/22 Rx gastroporesis #120 tabs anhlmrvo-gzckqscwm-ijlomloa 3.5 1 drp ophthalmic (eye) Q8H #5 mL 09/27/22 10/07/22 10/08/22 Rx mg/mL-10,000 unit/mL-0.1% eye drops (Maxitrol) Allergies Allergy/AdvReac Type Severity Reaction Status Date / Time codeine Allergy Severe shortness Verified 10/09/22 08:38 of breath Current Medications Generic Name Dose Route Start Last Admin Trade Name Freq PRN Reason Stop Dose Admin Sodium Chloride 1,000 mls @ 30 mls/hr 10/09/22 08:30 10/09/22 08:44 Sodium Chloride 0.9% IV 10/10/22 08:29 30 mls/hr .Q24H STEVE Administration PFSH Anesthesia Medical History Abnormal mammogram with microcalcification Allergic rhinitis Anxiety Atrial fibrillation Capsulitis of metatarsophalangeal (MTP) joint of left foot Capsulitis of metatarsophalangeal (MTP) joint of right foot Chronic kidney disease, stage 2 (mild) Chronic nausea Gastroparesis Graves disease Surgical hypothyroidism Hypertension Lumbar disc disorder with myelopathy Osteoporosis thoracic compression fracture Plantar fasciitis, bilateral [place]-neck deformity of finger Thoracic compression fracture Surgical History H/O: hysterectomy History of colon polyps Colonoscopy was done today and showed normal findings and patient will require screening colonoscopy in 10 years. History of left knee surgery History of thyroidectomy Hx of cholecystectomy Hx of eye surgery Family History Other History of colon polyps Denies family history of Diabetes CAD (coronary artery disease) Clotting disorder Dementia Chronic kidney disease (CKD) Suicide Anesthesia complication Bleeding disorder Lung disease Cancer Stroke Social History Smoking and tobacco status: current every day smoker cigarettes Second hand smoke exposure: Yes Smoking risk assessment/counseling performed?: No Alcohol intake: never Desire information about alcohol rehabilitation?: No Counseling given: No Substance/Drug Use: never Desire information about substance/drug rehabilitation?: No Counseling given: No Adopted: No Caregiver/support person: Yes Lives independently: Yes Household members: spouse Housing: House Marital status: Highest education level completed: High School Graduate service: No Current occupational status: employed Current occupational exposures/hazards: No Pets and animals: Yes Pets & animals: cat(s) and dog(s) Sexually active: Yes Do you think of yourself as: Straight/Heterosexual Current gender identity: Female Patricia/Jew: Holiness Special patricia needs: No Agree to transfusion: No Financial difficulty paying for basics: Decline to Answer Data Anesthesia Cardiac Studies: Echocardiogram 08/26/22 Sestamibi Stress Test (Cardiology) 02/13 Holter Monitor 10/18/19
--- NOTE | 2022-10-09 09:25 | P.HPUD_ITS ---
Surgery/Procedure H&P Update DATE OF PROCEDURE: October 09, 2022 DATE H&P PERFORMED: 09/26/22 H&P UPDATE INFORMATION: I have reviewed H&P completed within last 30 days, I have examined patient prior to procedure, No changes to prior documentation and [place] [facility] date indicated PLANNED PROCEDURE: Operation Date: 10/09/22 09:30 Proposed Procedures p EGD 73431,R11.0,K31.84(Not Applicable) - Hay Ramsey MD
[2022-10-09 09:46] VITALS: BP 119/64; PULSE 58; RESP 16; TEMP 36.2; O2SAT 97
[2022-10-09 09:58] VITALS: BP 106/54; PULSE 54; RESP 16; O2SAT 96
--- NOTE | 2022-10-09 16:10 | ANE.PACU2 ---
Inpatient post-anesthesia follow up: Airway intact: Yes Vital signs: Temperature 97.1 F Pulse Rate 54 Respiratory Rate 16 Blood Pressure 106/54 Pulse Oximetry 96 Oxygen Delivery Me thod Room Air Oxygen Flow Rate 3 Fraction of Inspir ed Oxygen Hydration adequate: Yes Nausea and vomiting: No Pain level: 2 Mental status: Baseline
== END 2022-10-09 10:22 | disposition home or self-care (01) ==
PROVIDERS: PCP Family Medicine Adult Medicine; Visit Provider Surgery
PROC: 0DJ08ZZ Inspection of Upper Intestinal Tract, Via Natural or Artificial Opening Endoscopic (ICD-10-PCS; CPT 43235; principal; 2022-10-09 09:30)
DX: K31.84 Gastroparesis (principal); R11.0 Nausea; K29.40 Chronic atrophic gastritis without bleeding; K29.80 Duodenitis without bleeding; D36.7 Benign neoplasm of other specified sites; K29.50 Unspecified chronic gastritis without bleeding
CPT/HCPCS: 43239; 88305; 88342; J2704; J7030

== ENCOUNTER → 2022-10-23 13:41 | Outpatient (BNVA) | payer MEDICARE, SELFPAY | PROVIDERS: PCP Family Medicine Adult Medicine; Visit Provider Surgery | DX: Z09 Encounter for follow-up examination after completed treatment for conditions other than malignant neoplasm (principal) | CPT/HCPCS: 99213 ==

== ENCOUNTER → 2022-11-20 12:54 | Outpatient (BNVA) | payer MEDICARE, SELFPAY | PROVIDERS: PCP Family Medicine Adult Medicine; Visit Provider Surgery | DX: Z09 Encounter for follow-up examination after completed treatment for conditions other than malignant neoplasm (principal); K31.84 Gastroparesis | CPT/HCPCS: 99213 ==

== ENCOUNTER 2022-12-23 08:39 | Outpatient (CLI) | payer MEDICARE, SELFPAY ==
--- NOTE | 2022-12-23 09:00 | MM_ITS ---
WS: [id number] DIAGNOSTIC LEFT DIGITAL TOMOSYNTHESIS MAMMOGRAPHY WITH CAD. HISTORY: Recommended left diagnostic 6 months from 06/23/2022, prior biopsy LEFT breast, benign biopsy with developing calcifications at the site. COMPARISON: 12/18/2020, 06/23/2022, 06/02/2022, 06/15/2017 Technique: CC, MLO and ML views. Breast composition: The breasts are heterogeneously dense, which may obscure small masses. Cluster of calcifications LEFT breast near 3:00. This corresponds to the prior biopsy site. These appear to be dystrophic calcifications. There is associated distortion which is probably related to the biopsy. Fi ndings are very similar to the prior studies. IMPRESSION: MM/[place] [id number] BI-RADS: 3-Probably Benign FOLLOW UP: 6 Month Follow-up Patient return to annual screening mammography in May 2023.
== END 2022-12-23 08:40 | disposition home or self-care (01) ==
LOC: RAD 08:39
PROVIDERS: PCP Family Medicine Adult Medicine; Visit Provider Family Medicine Adult Medicine
DX: R92.0 Mammographic microcalcification found on diagnostic imaging of breast (principal)
CPT/HCPCS: 77061; 80053; 83036; 84439; 84443; 85025; G0279

== ENCOUNTER → 2023-01-27 14:02 | Outpatient (BNVA) | payer MEDICARE, SELFPAY | PROVIDERS: PCP Family Medicine Adult Medicine; Visit Provider Internal Medicine Cardiovascular Disease | DX: I48.20 Chronic atrial fibrillation, unspecified (principal); I12.9 Hypertensive chronic kidney disease with stage 1 through stage 4 chronic kidney disease, or unspecified chronic kidney disease; N18.2 Chronic kidney disease, stage 2 (mild); Z79.899 Other long term (current) drug therapy; F17.210 Nicotine dependence, cigarettes, uncomplicated; Z79.01 Long term (current) use of anticoagulants | CPT/HCPCS: 99214 ==

== ENCOUNTER 2023-06-04 10:11 | Outpatient (CLI) | payer MEDICARE, SELFPAY ==
--- NOTE | 2023-06-04 10:30 | MM_ITS ---
WS: [id number] BILATERAL SCREENING DIGITAL TOMOSYNTHESIS MAMMOGRAM WITH CAD HISTORY: return to annual screening mammography in May 2023 COMPARISON: 12/23/2022, 06/23/2022 and 06/02/2022 and 12/18/2020 Bilateral CC and MLO views with tomosynthesis and synthetic mammography submitted. Computer aided det ection analyzed. Breast composition: The breasts are heterogeneously dense, which may obscure small masses. Distortion and dystrophic calcifications in the central medial LEFT breast from the prior biopsy. The distortio n is similar to prior studies. No suspicious masses. No suspicious masses, microcalcifications or arc hitectural distortion. IMPRESSION: MM/[place] [id number] BI-RADS: 2-Benign FOLLOW UP: 1 Year Follow-up
== END 2023-06-04 10:12 | disposition home or self-care (01) ==
LOC: RAD 10:13
PROVIDERS: PCP Family Medicine Adult Medicine; Visit Provider Family Medicine Adult Medicine
DX: Z12.31 Encounter for screening mammogram for malignant neoplasm of breast (principal)
CPT/HCPCS: 77063; 77067

== ENCOUNTER → 2023-06-22 14:03 | Outpatient (BNVA) | payer MEDICARE, SELFPAY | PROVIDERS: PCP Family Medicine Adult Medicine; Visit Provider Podiatrist Foot & Ankle Surgery | DX: M20.41 Other hammer toe(s) (acquired), right foot | CPT/HCPCS: 73630; 99213 ==

== ENCOUNTER → 2023-07-28 13:46 | Outpatient (BNVA) | payer MEDICARE, SELFPAY | PROVIDERS: PCP Family Medicine Adult Medicine; Visit Provider Internal Medicine Cardiovascular Disease | DX: I48.20 Chronic atrial fibrillation, unspecified (principal); Z72.0 Tobacco use; Z79.899 Other long term (current) drug therapy; R00.1 Bradycardia, unspecified; I12.9 Hypertensive chronic kidney disease with stage 1 through stage 4 chronic kidney disease, or unspecified chronic kidney disease; N18.2 Chronic kidney disease, stage 2 (mild); Z79.01 Long term (current) use of anticoagulants | CPT/HCPCS: 99214 ==

== ENCOUNTER → 2023-07-29 08:01 | Outpatient (BNVA) | payer MEDICARE, SELFPAY | PROVIDERS: PCP Family Medicine Adult Medicine; Visit Provider Family Medicine Adult Medicine | DX: I10 Essential (primary) hypertension (principal); Z79.899 Other long term (current) drug therapy; N18.2 Chronic kidney disease, stage 2 (mild); E05.00 Thyrotoxicosis with diffuse goiter without thyrotoxic crisis or storm; I48.20 Chronic atrial fibrillation, unspecified; Z72.0 Tobacco use | CPT/HCPCS: 80053; 80061; 84443; 85025 ==

== ENCOUNTER → 2023-09-21 09:01 | Outpatient (BNVA) | payer MEDICARE, SELFPAY | PROVIDERS: PCP Family Medicine Adult Medicine; Visit Provider Podiatrist Foot & Ankle Surgery | DX: M20.41 Other hammer toe(s) (acquired), right foot; M77.41 Metatarsalgia, right foot | CPT/HCPCS: 99214 ==

== ENCOUNTER 2023-10-14 06:52 | Day surgery (SDC) | payer MEDICARE, SELFPAY ==
[2023-10-14] VITALS (10 sets, daily range): BP systolic 87–127; BP diastolic 51–69; PULSE 50–66; RESP 14–16; TEMP 36.1–36.6; O2SAT 94–100; BMI 26.6
--- NOTE | 2023-10-14 | XR_ITS ---
WS: [id number] C-ARM RADIOGRAPHS RIGHT TOE; 2 IMAGES HISTORY: CHRISTINA PICS COMPARISON: None available. Intraoperative imaging during percutaneous pinning of the second, third and fourth toes. XR/XR toe RT min 2V [id number] IMPRESSION: Intraoperative imaging during percutaneous pinning.
[2023-10-14] MEDS: gabapentin 300 mg Capsule PO (07:47)
[2023-10-14] MEDS: acetaminophen 1,000 MG/100 ML PIGGYBACK 400 MG IV (07:49)
[2023-10-14] MEDS: sodium chloride 0.9% 1,000 ML 30 ML IV (07:56)
--- NOTE | 2023-10-14 08:02 | SUR.PREOP ---
plcaed on O2 and monitor.
--- NOTE | 2023-10-14 08:14 | ANES.PREANE2 ---
Pre-Anesthetic Assessment Height/Weight: Height 5 ft 4 in Weight 155 lb O2 Del Method Room Air 10/14/23 07:32 Preop Diagnosis: Hammertoes right foot Operation Date: 10/14/23 08:40 Proposed Procedures p second metatarsal Libra osteotomy(Right) - Hay Augustine DPM s second proximal interphalangeal joint arthrodesis,third proximal interphalangeal joint arthrodesis,fourth proximal interphalangeal joint arthrodesis fourth digit flexor digitorum longus to extensor digitorum longus tendon transfer(Right) - Hay Augustine DPM s second digit flexor digitorum longus to extensor digitorum longus tendon transfer,third digit flexor digitorum longus to extensor digitorum longus tendon transfer(Right) - Hay Augustine DPM s Derotational Arthroplasty(Right) - Hay Augustine DPM Last intake: Intake Last Liquid Date 10/13/23 Last Liquid Time 20:00 Last Solid Date 10/13/23 Last Solid Time 17:00 Social Tobacco and No alcohol Exam alert, oriented x 3, clear to auscultation bilaterally and regular rate & rhythm Airway Submandibular: within normal limits Cervical ROM: within normal limits Mallampati: Class III Comments: Comments: multiple missing teeth Anesthetic Plan ASA status: 2 Anesthesia: General Other: No prior issues with anesthesia NPO since midnight Patient takes amlodipine and atenolol for hypertension, controlled on those meds METs greater than 4 SOB with codeine Labs in July reviewed Echo demonstrating EF 60% without any valvular abnormalities Plan for GA with LMA as well as popliteal block Medications/Allergies Home Medications Medication Instructions Recorded Confirmed Last Taken Type alendronate 70 mg tablet 70 mg PO .q week #12 tabs 01/27/23 10/13/23 09/27/23 Rx amlodipine 2.5 mg tablet 2.5 mg PO DAILY #90 tabs 01/27/23 10/13/23 10/13/23 08:00 Rx atenolol 25 mg tablet 25 mg PO DAILY #90 tabs 01/27/23 10/13/23 10/13/23 08:00 Rx flecainide 50 mg tablet 50 mg PO Q12H heat rhythm #180 tabs 01/27/23 10/13/23 10/13/23 08:00 Rx levocetirizine 5 mg tablet 5 mg PO DAILY allergies #90 tabs 01/27/23 10/13/23 10/13/23 08:00 Rx thyroid (pork) 120 mg tablet 120 mg PO DAILY Hypothyroid 90 01/27/23 09/21/23 10/13/23 08:00 Rx ([place] Thyroid) days #90 tabs ibuprofen 800 mg tablet See Rx Instructions .Route 03/27/23 10/13/23 Unknown Rx .COMPLEX #90 tabs rivaroxaban 20 mg tablet (Xarelto) 20 mg PO DAILY blood thinner 90 09/01/23 10/13/23 10/11/23 Rx days #90 tabs Allergies Allergy/AdvReac Type Severity Reaction Status Date / Time codeine Allergy Severe shortness Verified 10/13/23 13:48 of breath Current Medications Generic Name Dose Route Start Last Admin Trade Name Freq PRN Reason Stop Dose Admin Sodium Chloride 1,000 mls @ 30 mls/hr 10/14/23 07:15 10/14/23 07:56 Sodium Chloride 0.9% IV 10/15/23 07:14 30 mls/hr .Q24H STEVE Administration PFSH Anesthesia Medical History (Updated 10/10/23 @ 14:48 by Jaleel Crane MD) Pain of left shoulder joint on movement Abnormal mammogram with microcalcification Bradycardia with 51-60 beats per minute Chronic nausea Gastroparesis Hypertension [place]-neck deformity of finger Allergic rhinitis Plantar fasciitis, bilateral Capsulitis of metatarsophalangeal (MTP) joint of right foot Capsulitis of metatarsophalangeal (MTP) joint of left foot Chronic kidney disease, stage 2 (mild) Graves disease Surgical hypothyroidism Atrial fibrillation Anxiety Thoracic compression fracture Osteoporosis thoracic compression fracture Lumbar disc disorder with myelopathy Surgical History History of esophagogastroduodenoscopy (EGD) 10/09/22 Dr. Ramsey Hx of eye surgery History of colon polyps Colonoscopy was done today and showed normal findings and patient will require screening colonoscopy in 10 years. Hx of cholecystectomy History of thyroidectomy History of left knee surgery H/O: hysterectomy Family History Other History of colon polyps Denies family history of Diabetes CAD (coronary artery disease) Clotting disorder Dementia Chronic kidney disease (CKD) Suicide Anesthesia complication Bleeding disorder Lung disease Cancer Stroke Social History Smoking and tobacco/nicotine status: current every day tobacco/nicotine user cigarettes Second hand smoke exposure: Yes Alcohol intake: never Substance/Drug Use: never Adopted: No Caregiver/support person: Yes Lives independently: Yes Household members: spouse Housing: House Marital status: Highest education level completed: High School Graduate service: No Current occupational status: employed Current occupational exposures/hazards: No Pets and animals: Yes Pets & animals: cat(s) and dog(s) Sexually active: Yes Do you think of yourself as: Straight/Heterosexual Current gender identity: Female Patricia/Sikh: Baptism Special patricia needs: No Agree to transfusion: No Data Anesthesia Cardiac Studies: Echocardiogram 08/26/22 Sestamibi Stress Test (Cardiology) 02/13/21 Holter Monitor 10/18/19
--- NOTE | 2023-10-14 08:15 | ANES.PROC ---
Anesthesia Procedures Procedure/Date: 10/14/23 Nerve Block ^: Nerve Block 1: Main Anesthesia: other Time Out Performed: Yes Consent: from patient Nerve block location: popliteal Anesthesia monitors applied: pulse oximetry, EKG, BP cuff and oxygen Nerve block position: supine Anesthetic Used: ropivicaine 0.5% Amount of anesthesia used (mL): 25 Ultrasound used to: recognize landmarks Nerve Stimulator Used?: Yes Interscalene/Femoral BLK: 4 stimuplex 21 g needle used for position and inplane approach Injection: neg aspiration of heme Patient Tolerated Procedure: well Complications: none Additional Comments: Decadron 4 mg added to block
--- NOTE | 2023-10-14 08:18 | SUR.PREOP ---
TOERATED NERVE BLOCK WELL. ROM AND SENSATION TOES OF RIGHT FOOT.
--- NOTE | 2023-10-14 08:28 | P.HPUD_ITS ---
Surgery/Procedure H&P Update DATE OF PROCEDURE: October 14, 2023 DATE H&P PERFORMED: 09/21/23 H&P UPDATE INFORMATION: I have reviewed H&P completed within last 30 days, I have examined patient prior to procedure, No changes to prior documentation and H&P is in [facility] [place] EMR on date indicated PREOP DIAGNOSIS: Hammertoes right foot PLANNED PROCEDURE: Operation Date: 10/14/23 08:40 Proposed Procedures p second metatarsal Libra osteotomy(Right) - Hay Augustine DPM s second proximal interphalangeal joint arthrodesis,third proximal interphalangeal joint arthrodesis,fourth proximal interphalangeal joint arthrodesis fourth digit flexor digitorum longus to extensor digitorum longus tendon transfer(Right) - Hay Augustine DPM s second digit flexor digitorum longus to extensor digitorum longus tendon transfer,third digit flexor digitorum longus to extensor digitorum longus tendon transfer(Right) - ADONAY Phan Derotational Arthroplasty(Right) - Hay Augustine DPM
[2023-10-14] MEDS: ceFAZolin 2,000 mg SDV 2000 MG IVP (08:41)
[2023-10-14] MEDS: BUPivacaine 0.5% INJ 30 mL INJECTION (09:16)
--- NOTE | 2023-10-14 10:31 | P.BOP_ITS ---
Date of procedure: 10/14/2023 Surgeon name: Dr. aHy Augustine D.P.M. School Based Therapist(s) name(s): Aby Nash Procedure(s) performed: Right foot hammertoe repair 2 through 5. See operative report for details Description of findings: Hammertoe contractures digits 2 through 5 right foot Estimated blood loss: 5 cc Tourniquet time: 75 minutes Specimen(s) removed: None Post-operative diagnosis: Number toes right foot
--- NOTE | 2023-10-14 12:05 | ANE.PACU2 ---
Inpatient post-anesthesia follow up: Airway intact: Yes Vital signs: Temperature 97.9 F Pulse Rate 63 Respiratory Rate 16 Blood Pressure 117/69 Pulse Oximetry 97 Oxygen Delivery Me thod Room Air Oxygen Flow Rate 2 Fraction of Inspir ed Oxygen Hydration adequate: Yes Nausea and vomiting: No Pain level: 1 Mental status: Baseline
--- NOTE | 2023-10-14 20:51 | P.OP_ITS ---
Operative Report Date of procedure: October 14, 2023 Surgeon: Hay Augustine DPM Procedure: Date of procedure: 10/14/2023 Pre-op diagnosis: Hammertoes right foot, metatarsalgia right foot Post-op diagnosis: Same Post-op findings: Elongated second metatarsal, rigid PIPJ contractures of lesser digits right foot Procedure done: 1. Right foot second metatarsal Libra osteotomy CPT 11428 2. Right foot second proximal interphalangeal joint arthrodesis CPT 13570 3. Right foot second digit flexor digitorum longus to extensor digitorum longus tendon transfer CPT 57291 4. Right foot third proximal interphalangeal joint arthrodesis CPT 84627 5. Right foot third digit flexor digitorum longus to extensor digitorum longus tendon transfer (additional) CPT 40117 6. Right foot fourth proximal interphalangeal joint arthrodesis CPT 78618 7. Right foot fourth digit flexor digitorum longus to extensor digitorum longus tendon transfer (additional) CPT 13835 8. Right foot fifth digit derotational arthroplasty CPT 68600 Implants: 18 mm snap off screw from [employer], 0.062 K wire x 3 Specimens removed: None Surgeon: Dr. Hay Augustine DPM Crisis Intervention Counselor: Aby Nash Estimated blood loss: 5 cc Tourniquet time: 75 minutes Complications: None Patient is a 67-year-old female that has a history of metatarsalgia, painful hammertoes right foot. The patient has had the aforementioned chief complaint for some time. Conservative treatment measures have been attempted and the patient has opted for surgical intervention at this time. A lengthy discussion regarding the procedure, including risks and complications has been had with the patient and is noted in the recent clinic note. Written and verbal consent have been obtained. All patient questions have been answered to the patient?s satisfaction. No written or verbal guarantees have been given or implied. The patient has been NPO since midnight. The history has been reviewed and the history and physical is current. The signed consent was confirmed and placed in the patient chart. Patient imaging has been reviewed and is consistent with the diagnosis. Under mild sedation, the patient was brought into the operating room and placed on the table in the supine position. IV antibiotics were given by the anesthesia team as preoperative surgical prophylaxis. General sedation was then performed by the anesthesiateam. A popliteal block was performed by the anesthesia department. A pneumatic tourniquet was then placed about the right ankle. The operative extremity was then prepped and draped in the usual fashion. The extremity was then elevated and exsanguinated before the tourniquet was inflated to 250 mmHg. After inflation, the following procedure was then performed. Attention was directed to the second digit of the right foot where a 5 cm linear incision was made over the proximal interphalangeal joint and metatarsophalangeal joint using a #15 blade. Dissection was carried down through subcutaneous and superficial fascia to the level of the extensor digito rum longus tendon which was split in Z-lengthening fashion using a #15 blade. After transection of the tendon and proximal interphalangeal joint capsule of the proximal interphalangeal joint was clearly visualized. The medial and lateral collateral ligaments of the joint were released using a #15 blade. The entirety of the proximal interphalangeal joint was then visualized. Next, attention was directed to the metatarsophalangeal joint which was incised and dissected to expose the second metatarsal head. A Libra osteotomy was then performed using a sagittal bone saw fashion. Capital fragment was translated proximally before being temporally fixated with a K wire. Next, an 18 mm headless snap off screw from [employer] was driven across the osteotomy site to maintain position. Good positioning was noted on C-arm imaging as well as clinically. Shortening of the second metatarsal was visualized and an anatomic metatarsal parabola was noted. Next, attention was redirected to the proximal interphalangeal joint. A sagittal bone saw was then used to remove the articular condyles from the head of the proximal phalanx. These were passed from the operative field. A rongeur was then used to remove the articular cartilage from the base of the intermediate phalanx in preparation for arthrodesis. Next, #15 blade was used to incise the plantar soft tissues to expose the underlying flexor tendons. Flexor digitorum longus was identified and transected transversely as distally as possible before being split longitudinally and wrapped around to the dorsal aspect of the proximal phalanx. The site was then irrigated with copious amounts sterile saline. A 0.062 K wire was then driven into the base of the intermediate phalanx and out the distal aspect of the toe before being driven in retrograde fashion back into the proximal phalanx and then across the metatarsal phalangeal joint into the head of the metatarsal. Good positioning of the wire and arthrodesis site was noted on C-arm imaging. The flexor tendon was then repaired on the dorsal aspect of the proximal phalanx and tenodesed to the extensor tendon which was also repaired at this point. Attention was directed to the third digit of the right foot where a 2.5 cm linear incision was made over the proximal interphalangeal joint using a #15 blade. Dissection was carried down through subcutaneous and superficial fascia to the level of the extensor digitorum longus tendon which was split in Z- lengthening fashion. After transection of the tendon and proximal interphalangeal joint capsule of the proximal interphalangeal joint was clearly visualized. The medial and lateral collateral ligaments of the joint were released using a #15 blade. The entirety of the proximal interphalangeal joint was then visualized. A sagittal bone saw was then used to remove the articular condyles from the head of the proximal phalanx. These were passed from the operative field. A rongeur was then used to remove the articular cartilage from the base of the intermediate phalanx in preparation for arthrodesis. Next, #15 blade was used to incise the plantar soft tissues to expose the underlying flexor tendons. Flexor digitorum longus was identified and transected transversely as distally as possible before being split longitudinally and wrapped around to the dorsal aspect of the proximal phalanx. The site was then irrigated with copious amounts sterile saline. A 0.062 K wire was then driven into the base of the intermediate phalanx and out the distal aspect of the toe before being driven in retrograde fashion back into the proximal phalanx and then across the metatarsal phalangeal joint into the head of the metatarsal. Good positioning of the wire and arthrodesis site was noted on C-arm imaging. T he flexor tendon was then repaired on the dorsal aspect of the proximal phalanx and tenodesed to the extensor tendon which was also repaired at this point. Attention was directed to the fourth digit of the right foot where a 2.5 cm linear incision was made over the proximal interphalangeal joint using a #15 blade. Dissection was carried down through subcutaneous and superficial fascia to the level of the extensor digitorum longus tendon which was split in Z- lengthening fashion. After transection of the tendon and proximal interphalangeal joint capsule of the proximal interphalangeal joint was clearly visualized. The medial and lateral collateral ligaments of the joint were released using a #15 blade. The entirety of the proximal interphalangeal joint was then visualized. A sagittal bone saw was then used to remove the articular condyles from the head of the proximal phalanx. These were passed from the operative field. A rongeur was then used to remove the articular cartilage from the base of the intermediate phalanx in preparation for arthrodesis. Next, #15 blade was used to incise the plantar soft tissues to expose the underlying flexor tendons. Flexor digitorum longus was identified and transected transversely as distally as possible before being split longitudinally and wrapped around to the dorsal aspect of the proximal phalanx. The site was then irrigated with copious amounts sterile saline. A 0.062 K wire was then driven into the base of the intermediate phalanx and out the distal aspect of the toe before being driven in retrograde fashion back into the proximal phalanx and then across the metatarsal phalangeal joint into the head of the metatarsal. Good positioning of the wire and arthrodesis site was noted on C-arm imaging. The flexor tendon was then repaired on the dorsal aspect of the proximal phalanx and tenodesed to the extensor tendon which was also repaired at this point. Attention was then directed to the fifth digit of the right foot where an elliptical incision was made overlying the fifth digit proximal interphalangeal joint. Skin ellipse was passed from the operative field. Extensor tendon was transected at the level of the proximal interphalangeal joint using #15 blade. Proximal interphalangeal joint was exposed by transecting the medial and lateral collateral ligaments of the proximal phalangeal joint. The head of the proximal phalanx was then resected using a sagittal bone saw. The site was then irrigated with copious amounts sterile saline. The extensor tendon was then repaired using 4-0 Vicryl before the skin was reapproximated at the fifth digit using 4-0 nylon. All incisions were then irrigated with sterile saline before being closed with 4-0 nylon in a horizontal mattress and simple interrupted suture pattern. The tourniquet was let down good hyperemic response was noted to all digits of the right foot. The 0.062 K wires were bent and Sami balls were applied. All incisions were dressed with Xeroform, 4 x 4 Abbie christiansen Ace. Patient was placed in a cam boot. The patient tolerated the procedure and anesthesia well and without complication. The patient was transported from the operating room to the recovery room with vital signs stable and vascular status intact to all digits of the foot. The patient was given both written and verbal instructions to remain weightbearing as tolerated in cam boot to the operative extremity, to keep dressings/splint clean, dry and intact and to take pain medication as directed. The patient will follow-up in the outpatient setting at their schedule d appointment. The patient was discharged with my personal number and was instructed to call if any questions or issues should arise. They were discharged home once anesthesia criteria was met.
== END 2023-10-14 12:05 | disposition home or self-care (01) ==
PROVIDERS: PCP Family Medicine Adult Medicine; Visit Provider Podiatrist Foot & Ankle Surgery
PROC: (CPT 28308; principal; 2023-10-14 08:30)
PROC: (CPT 28740; 2023-10-14 08:30)
PROC: (CPT 27690; 2023-10-14 08:30)
PROC: (CPT 27690; 2023-10-14 08:30)
DX: M20.41 Other hammer toe(s) (acquired), right foot (principal); M77.41 Metatarsalgia, right foot; I48.91 Unspecified atrial fibrillation; N18.2 Chronic kidney disease, stage 2 (mild); F17.210 Nicotine dependence, cigarettes, uncomplicated
CPT/HCPCS: 27690; 27692 ×2; 28285 ×3; 28286; 28308; 73660; 76000; C1713; J0131; J0690; J1100; J2371; J2405; J2704; J3010; J3490; J7030

== ENCOUNTER → 2023-10-21 12:41 | Outpatient (BNVA) | payer MEDICARE, SELFPAY | PROVIDERS: PCP Family Medicine Adult Medicine; Visit Provider Podiatrist Foot & Ankle Surgery | DX: Z98.890 Other specified postprocedural states (principal); M79.671 Pain in right foot; M20.41 Other hammer toe(s) (acquired), right foot; M77.41 Metatarsalgia, right foot | CPT/HCPCS: 99024 ==

== ENCOUNTER → 2023-10-28 13:05 | Outpatient (BNVA) | payer MEDICARE, SELFPAY | PROVIDERS: PCP Family Medicine Adult Medicine; Visit Provider Podiatrist Foot & Ankle Surgery | DX: M79.671 Pain in right foot (principal); Z98.890 Other specified postprocedural states; M20.41 Other hammer toe(s) (acquired), right foot; M77.41 Metatarsalgia, right foot | CPT/HCPCS: 73630; 99024 ==

== ENCOUNTER → 2023-11-05 10:10 | Outpatient (BNVA) | payer MEDICARE, SELFPAY | PROVIDERS: PCP Family Medicine Adult Medicine; Visit Provider Podiatrist Foot & Ankle Surgery | DX: Z98.890 Other specified postprocedural states (principal); M79.671 Pain in right foot; M20.41 Other hammer toe(s) (acquired), right foot; M77.41 Metatarsalgia, right foot | CPT/HCPCS: 99024 ==

== ENCOUNTER → 2023-11-20 10:05 | Outpatient (BNVA) | payer MEDICARE, SELFPAY | PROVIDERS: PCP Family Medicine Adult Medicine; Visit Provider Podiatrist Foot & Ankle Surgery | DX: M79.671 Pain in right foot (principal); Z98.890 Other specified postprocedural states; M20.41 Other hammer toe(s) (acquired), right foot; M77.41 Metatarsalgia, right foot | CPT/HCPCS: 73620; 73630; 99024 ==

== ENCOUNTER → 2023-12-01 14:11 | Outpatient (BNVA) | payer MEDICARE, SELFPAY | PROVIDERS: PCP Family Medicine Adult Medicine; Visit Provider Podiatrist Foot & Ankle Surgery | DX: M20.41 Other hammer toe(s) (acquired), right foot (principal); Z98.890 Other specified postprocedural states; M79.671 Pain in right foot; M77.41 Metatarsalgia, right foot | CPT/HCPCS: 99214 ==

== ENCOUNTER 2023-12-09 06:46 | Day surgery (SDC) | payer MEDICARE, SELFPAY ==
[2023-12-09] VITALS (8 sets, daily range): BP systolic 94–148; BP diastolic 50–83; PULSE 53–61; RESP 18–49; TEMP 36.1–36.3; O2SAT 96–100; BMI 26.6
[2023-12-09] MEDS: sodium chloride 0.9% 1,000 ML 30 ML IV (07:15)
[2023-12-09] MEDS: acetaminophen 1,000 MG/100 ML PIGGYBACK 400 MG IV (07:16)
[2023-12-09] MEDS: gabapentin 300 mg Capsule PO (07:17)
--- NOTE | 2023-12-09 07:27 | ANES.PREANE2 ---
Pre-Anesthetic Assessment Height/Weight: Height 1.63 m Weight 70.307 kg Temp Pulse Resp BP Pulse Ox O2 Del Method 97.4 F L 58 L 18 148/77 96 Room Air 12/09/23 07:11 12/09/23 07:11 12/09/23 07:11 12/09/23 07:11 12/09/23 07:11 12/09/23 07:11 Operation Date: 12/09/23 08:25 Proposed Procedures p Revision right foot third digit hammertoe(Right) - Hay Augustine DPM s Arthrodesis Foot Proximal Interphalangeal Joint Arthrodesis(Right) - Hay Augustine DPM Familial anesthetic complications: NOne Was Beta Mike taken within 24 hours: Yes Was Clonidine taken within 24 hours: N/A Last intake: Intake Last Liquid Date 12/08/23 Last Liquid Time 19:00 Last Solid Date 12/08/23 Last Solid Time 19:00 Social Tobacco and No tobacco Exam alert, oriented x 3, clear to auscultation bilaterally and regular rate & rhythm Airway Mallampati: Class III Dentition: other (missing) CV/HEM Atrial Fibrillation and Hypertension Chronic Renal Insufficiency GI gastroparesis -no issues the past 6 months, states back to normal functioning Metabolic Hyperlipidemia and Thyroid Disease Anesthetic Plan ASA status: 3 Anesthesia: MAC Risk of > 500 ml blood loss (7ml/kg in children): No Medications/Allergies Home Medications Medication Instructions Recorded Confirmed Last Taken Type alendronate 70 mg tablet 70 mg PO .q week #12 tabs 01/27/23 12/08/23 09/27/23 Rx amlodipine 2.5 mg tablet 2.5 mg PO DAILY #90 tabs 01/27/23 12/08/23 12/08/23 Rx atenolol 25 mg tablet 25 mg PO DAILY #90 tabs 01/27/23 12/08/23 12/08/23 Rx flecainide 50 mg tablet 50 mg PO Q12H heat rhythm #180 tabs 01/27/23 12/08/23 12/08/23 Rx levocetirizine 5 mg tablet 5 mg PO DAILY allergies #90 tabs 01/27/23 12/08/23 12/08/23 Rx thyroid (pork) 120 mg tablet 120 mg PO DAILY Hypothyroid 90 01/27/23 12/08/23 12/08/23 Rx ([place] Thyroid) days #90 tabs rivaroxaban 20 mg tablet (Xarelto) 20 mg PO DAILY blood thinner 90 09/01/23 12/09/23 12/05/23 Rx days #90 tabs Crutches #1 ea 10/14/23 12/01/23 Unknown Rx tramadol 50 mg tablet 50 mg PO Q6H PRN pain #28 tabs 10/14/23 12/08/23 Unknown Rx ibuprofen 800 mg tablet 800 mg PO TID 12/08/23 12/08/23 12/07/23 History Allergies Allergy/AdvReac Type Severity Reaction Status Date / Time codeine Allergy Severe shortness Verified 12/09/23 07:06 of breath Current Medications Generic Name Dose Route Start Last Admin Trade Name Freq PRN Reason Stop Dose Admin Sodium Chloride 1,000 mls @ 30 mls/hr 12/09/23 07:00 12/09/23 07:15 Sodium Chloride 0.9% IV 12/10/23 06:59 30 mls/hr .Q24H STEVE Administration PFSH Anesthesia Medical History Pain of left shoulder joint on movement Abnormal mammogram with microcalcification Bradycardia with 51-60 beats per minute Chronic nausea Gastroparesis Hypertension [place]-neck deformity of finger Allergic rhinitis Plantar fasciitis, bilateral Capsulitis of metatarsophalangeal (MTP) joint of right foot Capsulitis of metatarsophalangeal (MTP) joint of left foot Chronic kidney disease, stage 2 (mild) Graves disease Surgical hypothyroidism Atrial fibrillation Anxiety Thoracic compression fracture Osteoporosis thoracic compression fracture Lumbar disc disorder with myelopathy Surgical History History of esophagogastroduodenoscopy (EGD) 10/09/22 Dr. Ramsey Hx of eye surgery History of colon polyps Colonoscopy was done today and showed normal findings and patient will require screening colonoscopy in 10 years. Hx of cholecystectomy History of thyroidectomy History of left knee surgery H/O: hysterectomy Family History Other History of colon polyps Denies family history of Diabetes CAD (coronary artery disease) Clotting disorder Dementia Chronic kidney disease (CKD) Suicide Anesthesia complication Bleeding disorder Lung disease Cancer Stroke Social History Smoking and tobacco/nicotine status: unknown if used tobacco/nicotine Second hand smoke exposure: Yes Alcohol intake: never Substance/Drug Use: never Adopted: No Caregiver/support person: Yes Lives independently: Yes Household members: spouse Housing: House Marital status: Highest education level completed: High School Graduate service: No Current occupational status: employed Current occupational exposures/hazards: No Pets and animals: Yes Pets & animals: cat(s) and dog(s) Sexually active: Yes Do you think of yourself as: Straight/Heterosexual Current gender identity: Female Patricia/Anabaptism: Religion Special patricia needs: No Agree to transfusion: No Data Anesthesia Cardiac Studies: Echocardiogram 08/26/22 Sestamibi Stress Test (Cardiology) 02/13/21 Holter Monitor 10/18/19
--- NOTE | 2023-12-09 07:48 | W.PM.OPSUD ---
Surgery/Procedure H&P Update DATE OF PROCEDURE: December 09, 2023 DATE H&P PERFORMED: 12/01/23 H&P UPDATE INFORMATION: I have reviewed H&P completed within last 30 days, I have examined patient prior to procedure, No changes to prior documentation and H&P is in [facility] EMR on date indicated PLANNED PROCEDURE: Operation Date: 12/09/23 08:25 Proposed Procedures p Revision right foot third digit hammertoe(Right) - Hay Augustine DPM s Arthrodesis Foot Proximal Interphalangeal Joint Arthrodesis(Right) - Hay Augustine DPM
[2023-12-09] MEDS: ceFAZolin 2,000 mg SDV 2000 MG IVP (08:02)
[2023-12-09] MEDS: BUPivacaine 0.5% INJ 30 mL INJECTION (08:23)
--- NOTE | 2023-12-09 08:25 | XR_ITS ---
WS: [id number] Exam: XR foot RT 2V [id number] Date/Time of Exam: 12/09/2023 8:25 AM Reason For Exam: POST OP RIGHT FOOT THIRD DIGIT HAMMERTOE AP and lateral intraoperative C-arm images of the RIGHT forefoot are submitted. Images depict a screw bridging the PIP joint of the third toe. A pre-existing screw also noted in the head of the second m etatarsal.
--- NOTE | 2023-12-09 08:47 | P.BOP_ITS ---
Date of procedure: 12/09/2023 Surgeon name: Dr. Hay Augustine D.P.M. Director Translation(s) name(s): Nereida Procedure(s) performed: Right foot third digit proximal interphalangeal joint arthrodesis Description of findings: Nonunion right third proximal interphalangeal joint Estimated blood loss: 2 cc Tourniquet time: No tourniquet used Specimen(s) removed: None Post-operative diagnosis: Failed hammertoe repair right foot
--- NOTE | 2023-12-09 08:47 | P.OP_ITS ---
Operative Report Date of procedure: December 09, 2023 Surgeon: Hay Augustine DPM Procedure: Date of procedure: 12/09/2023 Pre-op diagnosis: Hammertoe right foot third digit Post-op diagnosis: Same Post-op findings: Nonunion right foot third digit hammertoe repair Procedure done: Revision hammertoe repair right foot third digit CPT 26151 Implants: One 2.5 x 18 mm headless compression screw from [employer] Specimens removed: None Surgeon: Dr. Hay Augustine DPM Regional Clinical Director: Nereida Estimated blood loss: 2 cc Tourniquet time: No tourniquet used Complications: None Patient is a 67-year-old female that has a history of failed right foot third digit hammertoe repair. The patient has had the aforementioned chief complaint for some time. Patient has had failed repair of right foot third digit. She returns clinic today for revision. A lengthy discussion regarding the procedure, including risks and complications has been had with the patient and is noted in the recent clinic note. Written and verbal consent have been obtained. All patient questions have been answered to the patient?s satisfaction. No written or verbal guarantees have been given or implied. The patient has been NPO since midnight. The history has been reviewed and the history and physical is current. The signed consent was confirmed and placed in the patient chart. Patient imaging has been reviewed and is consistent with the diagnosis. Under mild sedation, the patient was brought into the operating room and placed on the table in the supine position. IV antibiotics were given by the anesthesia team as preoperative surgical prophylaxis. IV sedation was then performed by the anesthesiateam. A local field block was performed using 0.5% Marcaine plain. A pneumatic tourniquet was then placed about the right ankle. The operative extremity was then prepped and draped in the usual fashion. The tourniquet was not inflated. After prep, the following procedure was then performed. Attention was directed to the right foot third digit where attention was directed to the right foot third digit. Under direct visualization using sterile fluoroscopy the third digit was reduced into an appropriate anatomic position before guidewire was driven in the distal aspect of the toe in retrograde fashion across the proximal to phalangeal joint. Good position of the wire was confirmed on C-arm imaging. Next a 15 blade was used to make a stab incision into the distal aspect of the third digit of the right foot. A cannulated drill was used to overdrilled the wire before a 2.5 mm headless compression screw from [employer] was driven into the toe to span the proximal interphalangeal joint. Good positioning of the screw was noted clinically as well as on C-arm imaging. The site was irrigated with sterile saline before the tip of the toe was closed using 4-0 nylon. Incision site was dressed with Xeroform, 4 x 4 gauze, Miriam, Aramis. The patient tolerated the procedure and anesthesia well and without complication. The patient was transported from the operating room to the recovery room with vital signs stable and vascular status intact to all digits of the right foot. The patient was given both written and verbal instructions to remain weightbearing as tolerated to the operative extremity, to keep dressings/splint clean, dry and intact and to take pain medication as directed. The patient will follow-up in the outpatient setting at their scheduled appointment. The patient was discharged with my personal number and was instructed to call if any questions or issues should arise. They were discharged home once anesthesia criteria was met.
--- NOTE | 2023-12-09 09:35 | ANE.PACU2 ---
Inpatient post-anesthesia follow up: Airway intact: Yes Vital signs: Temperature 97.2 F Pulse Rate 53 Respiratory Rate 49 Blood Pressure 115/54 Pulse Oximetry 98 Oxygen Delivery Me thod Room Air Oxygen Flow Rate Fraction of Inspir ed Oxygen Hydration adequate: Yes Nausea and vomiting: No Pain level: 1 Mental status: Baseline
== END 2023-12-09 09:38 | disposition home or self-care (01) ==
PROVIDERS: PCP Family Medicine Adult Medicine; Visit Provider Podiatrist Foot & Ankle Surgery
PROC: (CPT 28285; principal; 2023-12-09 08:15)
PROC: (CPT 28740; 2023-12-09 08:15)
DX: M20.41 Other hammer toe(s) (acquired), right foot (principal); I48.91 Unspecified atrial fibrillation; I10 Essential (primary) hypertension; E78.5 Hyperlipidemia, unspecified; F41.9 Anxiety disorder, unspecified
CPT/HCPCS: 28285; 73620; 76000; C1713; J0131; J0690; J2250; J2704; J3010; J3490; J7030

== ENCOUNTER → 2023-12-23 13:50 | Outpatient (BNVA) | payer MEDICARE, SELFPAY | PROVIDERS: PCP Family Medicine Adult Medicine; Visit Provider Podiatrist Foot & Ankle Surgery | DX: M79.671 Pain in right foot (principal); M20.41 Other hammer toe(s) (acquired), right foot; Z98.890 Other specified postprocedural states; M77.41 Metatarsalgia, right foot | CPT/HCPCS: 73630; 99024 ==

== ENCOUNTER → 2024-02-04 10:48 | Outpatient (BNVA) | payer MEDICARE, SELFPAY | PROVIDERS: PCP Family Medicine Adult Medicine; Visit Provider Internal Medicine Cardiovascular Disease | DX: I48.20 Chronic atrial fibrillation, unspecified (principal); Z72.0 Tobacco use; R00.1 Bradycardia, unspecified; I12.9 Hypertensive chronic kidney disease with stage 1 through stage 4 chronic kidney disease, or unspecified chronic kidney disease; N18.2 Chronic kidney disease, stage 2 (mild); Z79.01 Long term (current) use of anticoagulants | CPT/HCPCS: 99214 ==

== ENCOUNTER 2024-02-25 09:50 | Outpatient (CLI) | payer MEDICARE, SELFPAY ==
--- NOTE | 2024-02-25 10:00 | CT_ITS ---
WS: [id number] LDCT LUNG CANCER SCREENING HISTORY: smoker; 46pk yr hx TECHNIQUE: Axial imaging performed from the apices to 1 cm below the costophrenic angles. Coronal and sagittal reformats are submitted with axial MIP series. All CT scans at [facility] use at least one of these dose optimization techniques: automated exposure control; mA and/or kV adjustment per patient size (includes targeted exams where dose is matched to clinical indication); or iterativ e reconstruction. DLP: 65.02 mGy.cm DIvol: Mean CTDIvol: 1.40 (mGy) COMPARISON: CT abdomen 04/12/2019 Diagnostic quality: Satisfactory Lungs: 4 mm noncalcified pulmonary nodule in the LEFT upper lobe. Additional 4 mm noncalcified nodule s in the LEFT lower lobe. No mass. No endobronchial lesions. Heart: Normal size heart with no pericardial effusion.. Other findings: No adenopathy. Normal size heart. Hepatic cysts along the falciform ligament. Low-att enuation masses superior pole RIGHT kidney were noted to be cysts on the prior CT. Very small bilater al adrenal adenomas. Largest on the LEFT is [address]/CT lung screening 65000 IMPRESSION: LUNG-RADS: 2-Benign Appearance or Behavior FOLLOW UP: 12 Month: Continue annual screening with LDCT OTHER FINDINGS (S MODIFIER): None.
== END 2024-02-25 09:51 | disposition home or self-care (01) ==
LOC: RAD 09:52
PROVIDERS: PCP Family Medicine; Visit Provider Family Medicine
DX: Z12.2 Encounter for screening for malignant neoplasm of respiratory organs (principal); F17.210 Nicotine dependence, cigarettes, uncomplicated; R91.8 Other nonspecific abnormal finding of lung field; K76.89 Other specified diseases of liver; N28.1 Cyst of kidney, acquired; D35.02 Benign neoplasm of left adrenal gland; D35.01 Benign neoplasm of right adrenal gland
CPT/HCPCS: 71271

== ENCOUNTER → 2024-03-30 12:42 | Outpatient (BNVA) | payer MEDICARE, SELFPAY | PROVIDERS: PCP Family Medicine; Referring Provider Family Medicine; Visit Provider Nurse Practitioner Family | DX: D22.62 Melanocytic nevi of left upper limb, including shoulder (principal); L81.4 Other melanin hyperpigmentation; L82.1 Other seborrheic keratosis; D48.5 Neoplasm of uncertain behavior of skin; L82.0 Inflamed seborrheic keratosis; Z78.9 Other specified health status | CPT/HCPCS: 11104; 17110; 56605; 99203 ==

== ENCOUNTER → 2024-04-08 09:35 | Outpatient (BNVA) | payer MEDICARE, SELFPAY | PROVIDERS: PCP Family Medicine; Visit Provider Dermatology | DX: L72.0 Epidermal cyst (principal) | CPT/HCPCS: 99212 ==

== ENCOUNTER → 2024-04-28 08:15 | Outpatient (BNVA) | payer MEDICARE, SELFPAY | PROVIDERS: PCP Family Medicine; Visit Provider Nurse Practitioner Family | DX: L72.0 Epidermal cyst (principal); L57.8 Other skin changes due to chronic exposure to nonionizing radiation | CPT/HCPCS: 11900; 99213 ==

== ENCOUNTER 2024-05-12 10:42 | Outpatient (CLI) | payer MEDICARE, SELFPAY | END 2024-05-12 10:43 | disposition home or self-care (01) | LOC: RAD 05-13 14:33 | PROVIDERS: PCP Family Medicine; Visit Provider Family Medicine | DX: I10 Essential (primary) hypertension (principal); I48.20 Chronic atrial fibrillation, unspecified; E78.5 Hyperlipidemia, unspecified; E05.00 Thyrotoxicosis with diffuse goiter without thyrotoxic crisis or storm; E89.0 Postprocedural hypothyroidism; K31.84 Gastroparesis | CPT/HCPCS: 80053; 80061; 84439; 84443; 84481; 85025 ==

== ENCOUNTER 2024-06-08 12:30 | Outpatient (CLI) | payer MEDICARE, SELFPAY ==
--- NOTE | 2024-06-08 12:40 | MM_ITS ---
WS: [id number] BILATERAL 3D TOMOSYNTHESIS DIGITAL SCREENING MAMMOGRAPHY WITH CAD CLINICAL INFORMATION: screening due after 06.03.24 HISTORY: Screening mammogram. No current complaints. COMPARISON: 2023 TECHNIQUE: Bilateral CC and MLO views. FINDINGS: The breasts are composed of heterogeneous fibroglandular density tissue, which can limit the detection of small underlying mass lesions. No suspicious mass, asymmetry, calcifications, or architectural distortion. No evidence of malignancy. Stable dystrophic calcification LEFT breast. MM/MM [facility] tomosynthesis 42706 IMPRESSION: DENSITY: The breasts are heterogeneously dense, which may obscure small masses. BI-RADS: 2 - Benign FOLLOW UP: 1 Year Follow-up Recommend return to annual screening mammography.
--- NOTE | 2024-06-08 13:00 | XR_ITS ---
WS: [id number] DEXA (DUAL ENERGY X-RAY ABSORPTIOMETRY) Bone mineral density was performed using a [employer] machine. HISTORY: osteoporosis COMPARISON: 01/08/2022 Lumbar spine BMD (L1-L4): 0.835 g/cm2 T score: -2.9 Z score: -1.5 Total hip BMD: Left: 0.745 g/cm2. T score: -2.1 Z score: -1.0 Right: 0.800 g/cm2. T score: -1.7 Z score: -0.5 10 year probability of a major osteoporotic fracture is 18.9%. Compared to the prior study from 01/08/2022. Lumbar spine bone mineral density has increased by 1.8%. Bilateral hips bone mineral density has increased by 3.1%. XR/XR DEXA axial skeleton* 41817 IMPRESSION: OSTEOPOROSIS based upon the WHO classification for females. No significant change in bone mineral density within the lumbar spine. Significant increase in bone mineral density within the hips since the prior .
== END 2024-06-08 12:31 | disposition home or self-care (01) ==
PROVIDERS: PCP Family Medicine; Visit Provider Family Medicine
DX: Z12.31 Encounter for screening mammogram for malignant neoplasm of breast (principal); M81.0 Age-related osteoporosis without current pathological fracture; R92.333 Mammographic heterogeneous density, bilateral breasts; R92.1 Mammographic calcification found on diagnostic imaging of breast
CPT/HCPCS: 77063; 77067; 77080

== ENCOUNTER → 2024-06-28 10:30 | Outpatient (BNVA) | payer MEDICARE, SELFPAY | PROVIDERS: PCP Family Medicine; Visit Provider Nurse Practitioner Family | DX: L72.0 Epidermal cyst (principal); L57.8 Other skin changes due to chronic exposure to nonionizing radiation | CPT/HCPCS: 99213 ==

== ENCOUNTER → 2024-09-27 13:11 | Outpatient (BNVA) | payer MEDICARE, SELFPAY | PROVIDERS: PCP Family Medicine; Visit Provider Nurse Practitioner Family | DX: L72.0 Epidermal cyst (principal); L57.8 Other skin changes due to chronic exposure to nonionizing radiation | CPT/HCPCS: 99213 ==

== ENCOUNTER → 2024-10-11 13:01 | Outpatient (BNVA) | payer MEDICARE, SELFPAY | PROVIDERS: PCP Family Medicine; Visit Provider Dermatology | DX: D48.5 Neoplasm of uncertain behavior of skin (principal); R20.8 Other disturbances of skin sensation; R23.8 Other skin changes; L53.8 Other specified erythematous conditions | CPT/HCPCS: 11441; 12052 ==

== ENCOUNTER → 2024-10-18 09:04 | Outpatient (BNVA) | payer MEDICARE, SELFPAY | PROVIDERS: PCP Family Medicine; Visit Provider Dermatology | DX: Z48.02 Encounter for removal of sutures (principal) | CPT/HCPCS: 99212 ==

== ENCOUNTER → 2025-01-26 13:46 | Outpatient (BNVA) | payer MEDICARE, SELFPAY | PROVIDERS: PCP Family Medicine; Visit Provider Internal Medicine Cardiovascular Disease | DX: I48.91 Unspecified atrial fibrillation (principal); Z79.01 Long term (current) use of anticoagulants; I10 Essential (primary) hypertension; R00.1 Bradycardia, unspecified; Z72.0 Tobacco use | CPT/HCPCS: 99214 ==